=== PATIENT | female | born 1960 | race Caucasian/White ===

== ENCOUNTER 2017-06-06 09:09 | Day surgery (SDC) | payer BC ==
[~2017-06-06 09:09] MED LIST: Lactated Ringers 1,000 ML IV SCH; Sodium Chloride 0.9% 10 ML Syringe FLUSH PRN; Sodium Chloride 0.9% 2.5 ML Syringe FLUSH PRN
--- NOTE | 2017-06-06 09:47 | PCM.PREANE ---
Preanesthetic Assessment - Anesthesia/Transfusion/Family Hx Anesthesia History: Prior Anesthesia Without Reaction Family History of Anesthesia Reaction: No Transfusion History: No Prior Transfusion(s) Intubation History: Unknown - Review of Systems General: No Symptoms Pulmonary: No Symptoms Cardiovascular: No Symptoms Gastrointestinal: Diarrhea Neurological: No Symptoms Other: Reports: None - Physical Assessment Height: 1.6 m Weight: 85.275 kg ASA Class: 2 Mental Status: Alert & Oriented x3 Airway Class: Mallampati = 2 Dentition: Reports: Normal Dentition Thyro-Mental Finger Breadths: 2 Mouth Opening Finger Breadths: 3 ROM/Head Extension: Full Lungs: Clear to Auscultation, Normal Respiratory Effort Cardiovascular: Regular Rate, Regular Rhythm - Allergies Allergies/Adverse Reactions: Allergies Allergy/AdvReac Type Severity Reaction Status Date / Time cefprozil [From Cefzil] Allergy Rash Verified 05/28/17 11:02 ciprofloxacin [From Cipro] Allergy Body Aches Verified 05/28/17 11:02 Penicillins Allergy Rash Verified 05/28/17 11:02 varenicline [From Chantix] Allergy Rash Verified 05/28/17 11:02 - Blood Blood Available: No - Anesthesia Plan Pre-Op Medication Ordered: None - Acknowledgements Anesthesia Type Planned: MAC Pt an Appropriate Candidate for the Planned Anesthesia: Yes Alternatives and Risks of Anesthesia Discussed w Pt/Guardian: Yes Pt/Guardian Understands and Agrees with Anesthesia Plan: Yes PreAnesthesia Questionnaire - Past Health History Medical/Surgical History: Denies Medical/Surgical History HEENT History: Reports: None Cardiovascular History: Reports: None Respiratory History: Reports: None Gastrointestinal History: Reports: Colon Polyp, Diverticulosis Genitourinary History: Reports: None 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: Musculoskeletal History: Reports: None Neurological History: Reports: None Psychiatric History: Reports: None Endocrine/Metabolic History: Reports: Obesity/BMI 30+, Other (See Below) (h/o thyroid nodule (s/p subtotal thyroidectomy)) Hematologic History: Reports: None Immunologic History: Reports: None Oncologic (Cancer) History: Reports: None Dermatologic History: Reports: None - Past Surgical History Head Surgeries/Procedures: Reports: None HEENT Surgical History: Reports: Naso-Sinus Surgery GI Surgical History: Reports: Colonoscopy (x2, last one 6 years ago) Female Surgical History: Reports: Section Endocrine Surgical History: Reports: Thyroidectomy Other Endocrine Surgeries/Procedures: subtotal thyroidectomy - SUBSTANCE USE Smoking Status *Q: Former Smoker (quit smoking 7 years ago) Second Hand Smoke Exposure: No Recreational Drug Use History: No - HOME MEDS Home Medications: Home Meds Aspirin 2 tab PO ASDIRECTED PRN 05/28/17 [History] Nicotine Polacrilex [Nicorette] 1 piece gum CHEW ASDIRECTED 05/28/17 [History] - CURRENT (IN HOUSE) MEDS Current Meds: Current Medications Lactated Ringer's (Ringers, Lactated) 1,000 mls @ 125 mls/hr IV ASDIRECTED LAURA Last Admin: 06/06/17 09:30 Dose: 125 mls/hr Sodium Chloride (Saline Flush) 10 ml FLUSH ASDIRECTED PRN PRN Reason: Keep Vein Open Sodium Chloride (Saline Flush) 2.5 ml FLUSH ASDIRECTED PRN PRN Reason: Keep Vein Open Sodium Chloride (Saline Flush) 10 ml FLUSH ASDIRECTED PRN PRN Reason: Keep Vein Open Sodium Chloride (Saline Flush) 2.5 ml FLUSH ASDIRECTED PRN PRN Reason: Keep Vein Open
[2017-06-06] MEDS ORDERED: Lidocaine 2% 5 ML SDV ONE (10:11)
[2017-06-06] MEDS ORDERED: Midazolam 1 MG/ML 2 ML SDV ONE (10:11)
[2017-06-06] MEDS ORDERED: Propofol 200 MG/20 ML SDV ONE (10:11)
[2017-06-06] MEDS ORDERED: fentaNYL 100 MCG/2 ML SDV ONE (10:11)
[2017-06-06] MEDS ORDERED: Glycopyrrolate 0.2 MG/ML SDV ONE (10:53)
--- NOTE | 2017-06-06 11:53 | PCM.OPNOTE ---
- General Post-Op/Procedure Note Date of Surgery/Procedure: 06/06/17 Operative Procedure(s): Colonoscopy Findings: 1 cecal polyp, sigmoid colon polyps x 3 Pre Op Diagnosis: History of colon polyps Post-Op Diagnosis: Cecal polyp, Multiple sigmoid colon polyps Anesthesia Technique: [facility] [place] Primary Surgeon: Clarisse Fry Condition: Good Free Text/Narrative:: Intake & Output 06/05/17 06/06/17 06/06/17 22:59 06:59 14:59 Intake Total 900 Balance 900
[2017-06-06 14:22] VITALS: BP 137/75
--- NOTE | 2017-06-06 15:58 | OR ---
SURGEON: MIMA WHITE MD DATE OF PROCEDURE: 06/06/2017 PREOPERATIVE DIAGNOSIS: History of colon polyps. POSTOPERATIVE DIAGNOSES: 1. Cecal polyp x1. 2. Sigmoid colon polyp x3. PROCEDURE PERFORMED: Colonoscopy. ANESTHESIA: MAC. INSTRUMENT USED: Olympus colonoscope. EXTENT OF EXAM: To the cecum. PREPARATION: Good. LIMITATIONS: None. INDICATION FOR EXAMINATION: The patient is a 56-year-old female, who is due for a repeat colonoscopy after having found colon polyps on previous colonoscopy. The patient and I discussed the procedure, expected perioperative course and the risks including bleeding, infection, or perforation. The patient verbalized understanding and wishes to proceed. PROCEDURE IN DETAIL: The patient was brought to the endoscopy suite and placed in a left lateral decubitus position. A time-out was completed verifying the patient's name, age, date of , allergies, and procedure to be performed. Monitored anesthesia care was induced and continuous oxygen was provided via nasal cannula throughout the procedure. After adequate sedation was achieved, a digital rectal exam was performed. This exam was within normal limits. A well lubricated colonoscope was inserted in the rectum and advanced under direct visualization to the level of cecum. Cecum was identified by both visual and anatomic landmarks. A photograph was taken of cecal cap as well as the scope retroflexed within the cecum. The scope was then straightened out and fully withdrawn while examining the color, texture, anatomy, and integrity of the mucosa from the cecum to the anal canal. The patient was found to have a cecal polyp that measured approximately 5 mm in size. This was removed in piecemeal fashion using a cold biopsy forceps. The patient was then found to have three separate sigmoid polyps approximately 2 to 3 mm in size in the distal sigmoid colon. These were removed using a cold biopsy forceps. The scope was then brought into the rectum and retroflexed to allow visualization of the anal canal opening. This appeared normal and a photograph was taken. The scope was then straightened out and fully withdrawn. The cecum to anus time was 15 minutes. The patient tolerated the procedure well and was taken to PACU in stable condition. ENDOSCOPIC DIAGNOSES: 1. Cecal polyp x1. 2. Sigmoid colon polyp x3. RECOMMENDATIONS: Follow up in clinic in 2 weeks. JOVANNA KIM /[id number]
== END 2017-06-06 11:55 | disposition home or self-care (01) ==
LOC: MW.SDS 09:09
PROVIDERS: ATTEND Surgery
DX: Z12.11 Encounter for screening for malignant neoplasm of colon (principal); D12.0 Benign neoplasm of cecum; K63.5 Polyp of colon; Z86.010 Personal history of colon polyps; Z88.0 Allergy status to penicillin; Z88.1 Allergy status to other antibiotic agents; Z88.8 Allergy status to other drugs, medicaments and biological substances; Z79.899 Other long term (current) drug therapy; Z90.89 Acquired absence of other organs; Z87.891 Personal history of nicotine dependence
CPT/HCPCS: 45380; J2250; J3010; J7120; 88305; J2704

== ENCOUNTER 2018-07-23 07:58 | Day surgery (SDC) | payer BC ==
[~2018-07-23 07:58] MED LIST changes: +Sodium Chloride 0.9% 10 ML SDV IV PRN
[2018-07-23] MEDS ORDERED: Propofol 200 MG/20 ML SDV ONE ×2 (08:37→10:07)
[2018-07-23] MEDS ORDERED: Midazolam 1 MG/ML 2 ML SDV ONE (08:37)
[2018-07-23] MEDS ORDERED: fentaNYL 100 MCG/2 ML SDV ONE (08:38)
[2018-07-23] MEDS ORDERED: Lidocaine 2% 5 ML SDV ONE (08:38)
--- NOTE | 2018-07-23 09:06 | PCM.PREANE ---
Preanesthetic Assessment - Anesthesia/Transfusion/Family Hx Anesthesia History: Prior Anesthesia Without Reaction Transfusion History: No Prior Transfusion(s) Intubation History: Unknown - Review of Systems General: No Symptoms Pulmonary: No Symptoms Cardiovascular: No Symptoms Gastrointestinal: No Symptoms Neurological: No Symptoms Other: Reports: None - Physical Assessment NPO Status Date: 07/23/18 NPO Status Time: 06:00 O2 Sat by Pulse Oximetry: 95 Respiratory Rate: 15 Vital Signs: Last Vital Signs Temp 36.6 C 07/23/18 08:15 Pulse 78 07/23/18 08:15 Resp 15 07/23/18 08:15 BP 153/74 H 07/23/18 08:15 Pulse Ox 95 07/23/18 08:15 Height: 1.6 m Weight: 86.636 kg ASA Class: 2 Mental Status: Alert & Oriented x3 Airway Class: Mallampati = 3 (short, thick neck) Dentition: Reports: Normal Dentition Thyro-Mental Finger Breadths: 3 Mouth Opening Finger Breadths: 3 ROM/Head Extension: Full Lungs: Clear to Auscultation, Normal Respiratory Effort Cardiovascular: Regular Rate, Regular Rhythm - Allergies Allergies/Adverse Reactions: Allergies Allergy/AdvReac Type Severity Reaction Status Date / Time amoxicillin [From Augmentin] Allergy Rash Verified 07/17/18 14:00 cefprozil [From Cefzil] Allergy Rash Verified 07/17/18 13:56 ciprofloxacin [From Cipro] Allergy Body Aches Verified 07/17/18 13:56 clavulanic acid Allergy Rash Verified 07/17/18 14:00 [From Augmentin] Penicillins Allergy Rash Verified 07/17/18 13:56 varenicline [From Chantix] Allergy Rash Verified 07/17/18 13:56 - Acknowledgements Anesthesia Type Planned: MAC Pt an Appropriate Candidate for the Planned Anesthesia: Yes Alternatives and Risks of Anesthesia Discussed w Pt/Guardian: Yes Pt/Guardian Understands and Agrees with Anesthesia Plan: Yes PreAnesthesia Questionnaire - Past Health History Medical/Surgical History: Denies Medical/Surgical History HEENT History: Reports: Allergic Rhinitis Cardiovascular History: Reports: None Respiratory History: Reports: None Gastrointestinal History: Reports: Colon Polyp, Diverticulosis Genitourinary History: Reports: None 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: Musculoskeletal History: Reports: None Neurological History: Reports: None Psychiatric History: Reports: None Endocrine/Metabolic History: Reports: Obesity/BMI 30+, Other (See Below) Hematologic History: Reports: None Immunologic History: Reports: None Oncologic (Cancer) History: Reports: None Dermatologic History: Reports: None - Past Surgical History Head Surgeries/Procedures: Reports: None HEENT Surgical History: Reports: None, Naso-Sinus Surgery Cardiovascular Surgical History: Reports: None Respiratory Surgical History: Reports: None GI Surgical History: Reports: Colonoscopy Female Surgical History: Reports: Section Endocrine Surgical History: Reports: Thyroidectomy Other Endocrine Surgeries/Procedures: subtotal thyroidectomy Neurological Surgical History: Reports: None Musculoskeletal Surgical History: Reports: None Oncologic Surgical History: Reports: None Dermatological Surgical History: Reports: None - SUBSTANCE USE Smoking Status *Q: Former Smoker (quit 8 years ago) Tobacco Use Within Last Twelve Months: No Days Per Week of Alcohol Use: 0 (occasional etoh) Recreational Drug Use History: No - HOME MEDS Home Medications: Home Meds Aspirin 2 tab PO ASDIRECTED PRN 05/28/17 [History] Nicotine Polacrilex [Nicorette] 1 piece gum CHEW ASDIRECTED 05/28/17 [History] Cholecalciferol (Vitamin D3) [Vitamin D3] 200 units PO DAILY 07/17/18 [History] [place]-3/DHA/Epa/Fish Oil [Fish Oil 1,000 mg Softgel] 2 tab PO DAILY 07/17/18 [ History] - CURRENT (IN HOUSE) MEDS Current Meds: Current Medications Lactated Ringer's (Ringers, Lactated) 1,000 mls @ 125 mls/hr IV ASDIRECTED LAURA Last Admin: 07/23/18 08:37 Dose: 125 mls/hr Lactated Ringer's (Ringers, Lactated) 1,000 mls @ 125 mls/hr IV ASDIRECTED LAURA Sodium Chloride (Saline Flush) 10 ml FLUSH ASDIRECTED PRN PRN Reason: Keep Vein Open Sodium Chloride (Saline Flush) 2.5 ml FLUSH ASDIRECTED PRN PRN Reason: Keep Vein Open Sodium Chloride (Saline Flush) 10 ml FLUSH ASDIRECTED PRN PRN Reason: Keep Vein Open Sodium Chloride (Saline Flush) 2.5 ml FLUSH ASDIRECTED PRN PRN Reason: Keep Vein Open Sodium Chloride (Normal Saline) 10 ml IV ASDIRECTED PRN PRN Reason: IV Use Sodium Chloride (Saline Flush) 10 ml FLUSH ASDIRECTED PRN PRN Reason: Keep Vein Open Sodium Chloride (Saline Flush) 2.5 ml FLUSH ASDIRECTED PRN PRN Reason: Keep Vein Open Sodium Chloride (Normal Saline) 10 ml IV ASDIRECTED PRN PRN Reason: IV Use Discontinued Medications Fentanyl (Sublimaze) Confirm Administered Dose 100 mcg .ROUTE .STK-MED ONE Stop: 07/23/18 08:39 Lidocaine (Xylocaine-Mpf 2%) Confirm Administered Dose 5 ml .ROUTE .STK-MED ONE Stop: 07/23/18 08:39 Midazolam HCl (Versed 1 Mg/Ml) Confirm Administered Dose 2 mg .ROUTE .STK-MED ONE Stop: 07/23/18 08:38 Propofol (Diprivan 20 Ml) Confirm Administered Dose 200 mg .ROUTE .STK-MED ONE Stop: 07/23/18 08:38
[2018-07-23 10:24] VITALS: BP 125/83
--- NOTE | 2018-07-23 10:30 | PCM.POSTAN ---
POST ANESTHESIA ASSESSMENT - MENTAL STATUS Mental Status: Alert, Oriented - RESPIRATORY Respiratory Status: Respiratory Rate WNL, Airway Patent, O2 Saturation Stable - CARDIOVASCULAR CV Status: Pulse Rate WNL, Blood Pressure Stable - GASTROINTESTINAL GI Status: No Symptoms - POST OP HYDRATION Hydration Status: Adequate & Stable - OBSERVATIONS Free Text/Narrative:: The patient tolerated the procedure well. There were no apparent anesthetic complications at this time.
--- NOTE | 2018-07-23 11:08 | PCM48HPAN ---
Post Anesthesia Note - EVALUATION WITHIN 48HRS OF ANESTHETIC Vital Signs in Normal Range: Yes Patient Participated in Evaluation: Yes Respiratory Function Stable: Yes Airway Patent: Yes Cardiovascular Function Stable: Yes Hydration Status Stable: Yes Pain Control Satisfactory: Yes Nausea and Vomiting Control Satisfactory: Yes Mental Status Recovered: Yes Resp Rate: 22 - COMMENTS/OBSERVATIONS Free Text/Narrative:: The patient tolerated the procedure well. There were no apparent anesthetic complications at this time. Discharge home per criteria.
--- NOTE | 2018-07-23 13:38 | PCM.OPNOTE ---
- General Post-Op/Procedure Note Date of Surgery/Procedure: 07/23/18 Operative Procedure(s): Screening colonoscopy Findings: ascending colon polyp, transverse colon polyp, hepatic flexure polyp, diverticulosis Pre Op Diagnosis: History of colon polyp Post-Op Diagnosis: Ascending colon polyp, transverse colon polyp, hepatic flexure polyp diverticulosis Anesthesia Technique: [facility] [place] Primary Surgeon: Clarisse Fry Condition: Good Free Text/Narrative:: Intake & Output 07/22/18 07/23/18 07/23/18 22:59 06:59 14:59 Intake Total 700 Balance 700
--- NOTE | 2018-07-23 18:42 | OR ---
SURGEON: CLARISSE FRY MD DATE OF PROCEDURE: 07/23/2018 PREOPERATIVE DIAGNOSIS: History of colon polyps. POSTOPERATIVE DIAGNOSES: 1. Diverticulosis. 2. Hepatic flexure polyp. 3. Ascending colon polyp. 4. Transverse colon polyp. PROCEDURE PERFORMED: Screening colonoscopy. ENDOSCOPIST: Clarisse Fry MD. ANESTHESIA: MAC. INSTRUMENT USED: Olympus colonoscope. EXTENT OF EXAM: To the cecum. PREPARATION: Good. LIMITATIONS: None. INDICATION FOR EXAMINATION: The patient is a 58-year-old female who presents for a repeat colonoscopy. 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 I again explained the procedure, expected perioperative course, and risks including bleeding, infection, damage to surrounding structures including perforation. The patient verbalized understanding and wishes to proceed. PROCEDURE IN DETAIL: The patient was brought into the endoscopy suite and placed in the left lateral decubitus position. A time-out was completed verifying the patient's name, age, date of , allergies, and procedure to be performed. Monitored anesthesia care was induced and continuous oxygen was provided via nasal cannula throughout the procedure. After adequate sedation was achieved, a digital rectal exam was performed. This exam was within normal limits. A well lubricated colonoscope was inserted into the rectum and advanced under direct visualization to the level of the cecum. The cecum was identified by both visual and anatomic landmarks. A photograph was taken of cecal cap as well as with the scope retroflexed within the cecum. The scope was then straightened out and fully withdrawn while examining the color, texture, anatomy, and integrity of the mucosa from the cecum to the anal canal. There was no evidence of a cecal polyp. The patient did have a small ascending colon polyp which was removed in piecemeal fashion using a cold biopsy forceps. There was a similar appearing polyp at the hepatic flexure and in the transverse colon. These were removed in a similar fashion. The patient did have some mild diverticulosis within the sigmoid colon. The scope was then brought into the rectum and retroflexed to allow visualization of the anal canal opening. This appeared normal and a photograph was taken. The scope was then straightened out and fully withdrawn. The cecum to anus time was 14 minutes. The patient tolerated the procedure well and was taken to PACU in stable condition. ENDOSCOPIC DIAGNOSES: 1. Diverticulosis. 2. Hepatic flexure polyp. 3. Ascending colon polyp. 4. Transverse colon polyp. RECOMMENDATIONS: Follow up in clinic in 2 weeks. JOVANNA KIM /[id number]
== END 2018-07-23 10:50 | disposition home or self-care (01) ==
LOC: MW.SDS 07:58
PROVIDERS: ATTEND Surgery
DX: D12.2 Benign neoplasm of ascending colon (principal); D12.3 Benign neoplasm of transverse colon; K57.30 Diverticulosis of large intestine without perforation or abscess without bleeding; R12 Heartburn; E78.00 Pure hypercholesterolemia, unspecified; E78.1 Pure hyperglyceridemia; Z88.0 Allergy status to penicillin; Z88.1 Allergy status to other antibiotic agents; Z88.8 Allergy status to other drugs, medicaments and biological substances; Z87.891 Personal history of nicotine dependence; Z79.82 Long term (current) use of aspirin; Z79.899 Other long term (current) drug therapy
CPT/HCPCS: 45380; J2001; J2250; J2704; J3010; J7120; 88305

== ENCOUNTER 2018-11-14 11:53 | Observation (INO) | payer BC ==
[2018-11-14] MEDS ORDERED: Sodium Chloride 0.9% 10 ML SDV IV PRN (12:16)
[2018-11-14] MEDS ORDERED: Sodium Chloride 0.9% 10 ML Syringe FLUSH PRN (12:16)
[2018-11-14] MEDS ORDERED: Sodium Chloride 0.9% 2.5 ML Syringe FLUSH PRN (12:16)
--- NOTE | 2018-11-14 12:16 | EDM.PDOC ---
ED HPI GENERAL MEDICAL PROBLEM - General Chief Complaint: Cardiovascular Problem Stated Complaint: DIZZINESS, ELEVATED HRT RATE THIS AM, LFT SD NUMB Time Seen by Provider: 11/14/18 12:07 Source of Information: Reports: Patient History Limitations: Reports: No Limitations - History of Present Illness INITIAL COMMENTS - FREE TEXT/NARRATIVE: History of present illness: []Patient states that he is ago she had a sensation of left-sided numbness tingling and pain on her whole body from head to toe that resolved spontaneously and today while she was working out symptoms recurred. She says there less now however she still feels slight numbness and tingling in her fingers and leg. She denies any chest pain, shortness of breath, fevers, chills. 2 Mondays she has had GI upset is temporary. He denies any urinary complaints. Review of systems: As per history of present illness and below otherwise all systems reviewed and negative. Past medical history: As per history of present illness and as reviewed below otherwise noncontributory. Surgical history: As per history of present illness and as reviewed below otherwise noncontributory. Social history: No reported history of drug or alcohol abuse. Family history: As per history of present illness and as reviewed below otherwise noncontributory. Physical exam: General: Well developed, well nourished in NAD HEENT: Atraumatic, normocephalic, pupils reactive, negative for conjunctival pallor or scleral icterus, mucous membranes moist, throat clear, neck supple, nontender, trachea midline. Lungs: Clear to auscultation, breath sounds equal bilaterally, chest nontender. Heart: S1S2, regular, negative for clicks, rubs, or JVD. Abdomen: NABS, Soft, nondistended, nontender. Negative for masses or hepatosplenomegaly. Negative for costovertebral tenderness. Pelvis: Stable nontender. Genitourinary: Deferred. Rectal: Deferred. Extremities: Atraumatic, negative for cords or calf pain. Neurovascular unremarkable. Neuro: Awake, alert, oriented. Cranial nerves II through XII unremarkable. Cerebellum unremarkable. Motor and sensory unremarkable throughout. Exam nonfocal. Skin:warm and dry NIH 0 Diagnostics: CT shows no stroke however there is deep white matter low density areas suspicious for demyelinating type disease. Focal like MS lesions and radiology recommended further workup with MRI. CBC, chemistry, troponin, TSH Therapeutics: IV hydration and observation ED Course: Stable, consulted hospitalist to admit patient for further workup including MRI of head Impression: Left-sided numbness and tingling Prescriptions: None Plan: Admit Definitive disposition and diagnosis as appropriate pending reevaluation and review of above. - Related Data Allergies Allergy/AdvReac Type Severity Reaction Status Date / Time amoxicillin [From Augmentin] Allergy Rash Verified 11/14/18 12:06 cefprozil [From Cefzil] Allergy Rash Verified 11/14/18 12:06 ciprofloxacin [From Cipro] Allergy Body Aches Verified 11/14/18 12:06 clavulanic acid Allergy Rash Verified 11/14/18 12:06 [From Augmentin] Penicillins Allergy Rash Verified 11/14/18 12:06 varenicline [From Chantix] Allergy Rash Verified 11/14/18 12:06 Home Meds: Home Meds Aspirin 2 tab PO ASDIRECTED PRN 05/28/17 [History] Nicotine Polacrilex [Nicorette] 1 piece gum CHEW ASDIRECTED 05/28/17 [History] Cholecalciferol (Vitamin D3) [Vitamin D3] 200 units PO DAILY 07/17/18 [History] [place]-3/DHA/Epa/Fish Oil [Fish Oil 1,000 mg Softgel] 2 tab PO DAILY 07/17/18 [ History] Past Medical History - Past Health History Medical/Surgical History: Denies Medical/Surgical History HEENT History: Reports: Allergic Rhinitis Cardiovascular History: Reports: High Cholesterol, Hypertension Respiratory History: Reports: None Gastrointestinal History: Reports: Colon Polyp, Diverticulosis Genitourinary History: Reports: None 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 ASSOCIATE History: Reports: Musculoskeletal History: Reports: None Neurological History: Reports: None Psychiatric History: Reports: None Endocrine/Metabolic History: Reports: Obesity/BMI 30+, Other (See Below) Hematologic History: Reports: None Immunologic History: Reports: None Oncologic (Cancer) History: Reports: None Dermatologic History: Reports: None - Infectious Disease History Infectious Disease History: Reports: Chicken Pox - Past Surgical History Head Surgeries/Procedures: Reports: None HEENT Surgical History: Reports: None, Naso-Sinus Surgery Cardiovascular Surgical History: Reports: None Respiratory Surgical History: Reports: None GI Surgical History: Reports: Colonoscopy Female Surgical History: Reports: Section Endocrine Surgical History: Reports: Thyroidectomy Other Endocrine Surgeries/Procedures: subtotal thyroidectomy Neurological Surgical History: Reports: None Musculoskeletal Surgical History: Reports: None Oncologic Surgical History: Reports: None Dermatological Surgical History: Reports: None Social & Family History - Family History Family Medical History: Noncontributory Cardiac: Reports: MT - Tobacco Use Smoking Status *Q: Former Smoker Years of Tobacco use: 33 Used Tobacco, but Quit: Yes Month/Year Tobacco Last Used: 9year - Caffeine Use Caffeine Use: Reports: Coffee - Recreational Drug Use Recreational Drug Use: No ED ROS GENERAL - Review of Systems Review Of Systems: See Below ED EXAM, GENERAL - Physical Exam Exam: See Below Course - Vital Signs Last Recorded V/S: Last Vital Signs Temp 97.8 F 11/14/18 12:06 Pulse 77 11/14/18 13:30 Resp 18 11/14/18 12:06 BP 176/99 H 11/14/18 13:30 Pulse Ox 96 11/14/18 13:30 - Orders/Labs/Meds Orders: Active Orders 24 hr Category Date Time Status Patient Status [ADT] Stat ADT 11/14/18 13:23 Active Assess Neurological Status [RC] ASDIRECTED Care 11/14/18 12:16 Active Bedrest [RC] ASDIRECTED Care 11/14/18 12:16 Active Cardiac Monitoring [RC] . DIRECTED Care 11/14/18 12:16 Active EKG 12 Lead [EKG Documentation Completion] [RC] STAT Care 11/14/18 12:12 Active EKG Documentation Completion [RC] STAT Care 11/14/18 12:16 Active Height and Weight [RC] UPON Care 11/14/18 12:16 Active Initiate Acute Stroke Protocol [RC] STAT Care 11/14/18 12:16 Active NIH Stroke Scale [RC] ASDIRECTED Care 11/14/18 12:16 Active Nursing Bedside Swallow Screen [RC] ASDIRECTED Care 11/14/18 12:16 Active Oxygen Therapy [RC] ASDIRECTED Care 11/14/18 12:16 Active Stroke Education, General [RC] Click to Edit Care 11/14/18 12:16 Active Vital Signs [RC] Q15M Care 11/14/18 12:16 Active Sodium Chloride 0.9% [Normal Saline] Med 11/14/18 12:16 Active 10 ml IV ASDIRECTED PRN Sodium Chloride 0.9% [Saline Flush] Med 11/14/18 12:16 Active 10 ml FLUSH ASDIRECTED PRN Sodium Chloride 0.9% [Saline Flush] Med 11/14/18 12:16 Active 2.5 ml FLUSH ASDIRECTED PRN Peripheral IV Insertion Adult [OM.PC] Stat Ot 11/14/18 12:16 Ordered Peripheral IV Insertion Adult [OM.PC] Stat [facility] 11/14/18 12:16 Ordered Medication Orders Sodium Chloride (Saline Flush) 10 ml FLUSH ASDIRECTED PRN PRN Reason: Keep Vein Open Sodium Chloride (Saline Flush) 2.5 ml FLUSH ASDIRECTED PRN PRN Reason: Keep Vein Open Sodium Chloride (Normal Saline) 10 ml IV ASDIRECTED PRN PRN Reason: IV Use Labs: Laboratory Tests 11/14/18 11/14/18 11/14/18 Range/Units 12:20 12:20 12:20 WBC 10.01 (4.0-11.0) K/uL RBC 5.14 (4.30-5.90) M/uL Hgb 15.7 (12.0-16.0) g/dL Hct 46.2 H (36.0-46.0) % MCV 89.9 (80.0-98.0) fL MCH 30.5 (27.0-32.0) pg MCHC 34.0 (31.0-37.0) g/dL RDW Std Deviation 44.0 (28.0-62.0) fl RDW Coeff of Oscar 13 (11.0-15.0) % Plt Count 282 (150-400) K/uL MPV 10.00 (7.40-12.00) fL Neut % (Auto) 68.1 (48.0-80.0) % Lymph % (Auto) 21.8 (16.0-40.0) % [place] % (Auto) 7.3 (0.0-15.0) % Eos % (Auto) 2.3 (0.0-7.0) % Baso % (Auto) 0.5 (0.0-1.5) % Neut # (Auto) 6.8 H (1.4-5.7) K/uL Lymph # (Auto) 2.2 (0.6-2.4) K/uL [place] # (Auto) 0.7 (0.0-0.8) K/uL Eos # (Auto) 0.2 (0.0-0.7) K/uL Baso # (Auto) 0.1 (0.0-0.1) K/uL Nucleated RBC % 0.0 /100WBC Nucleated RBCs # 0 K/uL INR 0.96 APTT 26.5 (18.6-31.3) SEC Sodium 140 (136-145) mmol/L Potassium 4.3 (3.5-5.1) mmol/L Chloride 105 (98-107) mmol/L Carbon Dioxide 21.5 (21.0-32.0) mmol/L BUN 16 (7.0-18.0) mg/dL Creatinine 0.8 (0.6-1.0) mg/dL Est Cr Clr Drug Dosing 62.63 mL/min Estimated GFR (MDRD) > 60.0 ml/min Glucose 109 H (74-106) mg/dL Calcium 9.7 (8.5-10.1) mg/dL Total Bilirubin 0.5 (0.2-1.0) mg/dL AST 18 (15-37) IU/L ALT 35 (14-63) IU/L Alkaline Phosphatase 107 (46-116) U/L Troponin I < 0.050 (0.000-0.056) ng/mL Total Protein 7.6 (6.4-8.2) g/dL Albumin 4.4 (3.4-5.0) g/dL Globulin 3.2 (2.6-4.0) g/dL Albumin/Globulin Ratio 1.4 (0.9-1.6) TSH 3rd Generation 1.47 (0.36-3.74) uIU/mL Meds: Medications Generic Name Dose Route Start Last Admin Trade Name Freq PRN Reason Stop Dose Admin Sodium Chloride 10 ml 11/14/18 12:16 Saline Flush FLUSH ASDIRECTED PRN Keep Vein Open Sodium Chloride 2.5 ml 11/14/18 12:16 Saline Flush FLUSH ASDIRECTED PRN Keep Vein Open Sodium Chloride 10 ml 11/14/18 12:16 Normal Saline IV ASDIRECTED PRN IV Use Departure - Departure Time of Disposition: 14:15 Disposition: Refer to Observation Condition: Good Clinical Impression: Left sided numbness - My Orders Last 24 Hours: My Active Orders 11/14/18 12:12 EKG 12 Lead [EKG Documentation Completion] [RC] STAT 11/14/18 12:16 Assess Neurological Status [RC] ASDIRECTED Bedrest [RC] ASDIRECTED Cardiac Monitoring [RC] . DIRECTED EKG Documentation Completion [RC] STAT Height and Weight [RC] UPON Initiate Acute Stroke Protocol [RC] STAT NIH Stroke Scale [RC] ASDIRECTED Nursing Bedside Swallow Screen [RC] ASDIRECTED Oxygen Therapy [RC] ASDIRECTED Stroke Education, General [RC] Click to Edit Vital Signs [RC] Q15M Sodium Chloride 0.9% [Normal Saline] 10 ml IV ASDIRECTED PRN Sodium Chloride 0.9% [Saline Flush] 10 ml FLUSH ASDIRECTED PRN Sodium Chloride 0.9% [Saline Flush] 2.5 ml FLUSH ASDIRECTED PRN Peripheral IV Insertion Adult [OM.PC] Stat Peripheral IV Insertion Adult [OM.PC] Stat 11/14/18 13:23 Patient Status [ADT] Stat - Assessment/Plan Last 24 Hours: My Active Orders 11/14/18 12:12 EKG 12 Lead [EKG Documentation Completion] [RC] STAT 11/14/18 12:16 Assess Neurological Status [RC] ASDIRECTED Bedrest [RC] ASDIRECTED Cardiac Monitoring [RC] . DIRECTED EKG Documentation Completion [RC] STAT Height and Weight [RC] UPON Initiate Acute Stroke Protocol [RC] STAT NIH Stroke Scale [RC] ASDIRECTED Nursing Bedside Swallow Screen [RC] ASDIRECTED Oxygen Therapy [RC] ASDIRECTED Stroke Education, General [RC] Click to Edit Vital Signs [RC] Q15M Sodium Chloride 0.9% [Normal Saline] 10 ml IV ASDIRECTED PRN Sodium Chloride 0.9% [Saline Flush] 10 ml FLUSH ASDIRECTED PRN Sodium Chloride 0.9% [Saline Flush] 2.5 ml FLUSH ASDIRECTED PRN Peripheral IV Insertion Adult [OM.PC] Stat Peripheral IV Insertion Adult [OM.PC] Stat 11/14/18 13:23 Patient Status [ADT] Stat
[2018-11-14 13:14] LABS: CHLORIDE,CL 105 mmol/L (98-107); SODIUM,NA 140 mmol/L (136-145)
--- NOTE | 2018-11-14 13:14 | CT ---
INDICATION: 58-year-old female presents with left-sided weakness. COMPARISON: none TECHNIQUE: A CT volumetric acquisition was performed of the brain without IV contrast. FINDINGS: The CT images demonstrate abnormal confluent areas of decreased density within the deep white matter of the frontal and occipital lobes. There is no evidence of associated mass effect or hemorrhage. There is normal fine-white differentiation. The fine matter appears normal. There is no evidence of a subdural or epidural hematoma. There is no evidence of subarachnoid hemorrhage or intraparenchymal bleeding. The CT images reveal a normal appearance of the cerebral ventricles and basal cisterns. The mastoid air cells and middle ear cavities are clear. The calvarium appears intact. There is trace amount of fluid and inflammatory mucoperiosteal thickening within the maxillary and ethmoid air cells. IMPRESSION: Abnormal low-density changes within the deep white matter of the frontal and occipital lobes. Would recommend characterization with MRI to determine if there is a demyelinating process such as Lyme`s disease in this 58-year-old female. Please note that all CT scans at this facility use dose modulation, iterative reconstruction, and/or weight-based dosing when appropriate to reduce radiation dose to as low as reasonably achievable. Dictated by Bashir Trujillo MD @ Nov 14 2018 1:00PM Signed by Dr. Bashir Trujillo @ Nov 14 2018 1:13PM
[2018-11-14] MEDS ORDERED: Ondansetron 4 MG/2 ML SDV IVPUSH PRN (14:31)
[2018-11-14] MEDS ORDERED: Ondansetron 4 MG Tab.DIS PO PRN (14:31)
[2018-11-14] MEDS ORDERED: Morphine 2 MG/ML Syringe IVPUSH PRN (14:31)
[2018-11-14] MEDS ORDERED: Acetaminophen 325 MG Tab PO PRN (14:31)
--- NOTE | 2018-11-14 15:03 | PCM.HP.2 ---
<Bret Hamilton M - Last Filed: 11/14/18 16:33> H&P History of Present Illness - General Date of Service: 11/14/18 Admit Problem/Dx: Admission Diagnosis/Problem Admission Diagnosis/Problem Numbness - History of Present Illness Initial Comments - Free Text/Narative: 58-year-old female presented to [facility] ER with complaints of left face, left arm and left leg soreness and numbness. Onset was approximately 2 hours prior to arrival to ED and resolved within 1 hour. Patient reports that approximately 3 days ago she had stomach cramping, bloating, fatigue, chills, body aches and feeling like her heart was racing and this then progressed to soreness and numbness on the left side of her body. This eventually resolved on its own and she was in her normal state of health yesterday. However, this morning after working out in the gym, she reported feeling left sided numbness, tingling and soreness once again and then spontaneously resolved within an hour. She came to the ER for further evaluation. At bedside, patient reports slight dizziness, cough and chronic diarrhea. She denies any fevers, chills, vomiting, chest pain , shortness of breath, numbness, tingling, muscle aches, skin rashes or lesions. In the ER, CT head showed no evidence of stroke but does show abnormal low- density changes within the deep white matter of frontal and occipital lobes that could represent a demyelinating process such as Lyme's disease. MRI was recommended. - Related Data Allergies/Adverse Reactions: Allergies Allergy/AdvReac Type Severity Reaction Status Date / Time amoxicillin [From Augmentin] Allergy Rash Verified 11/14/18 14:43 cefprozil [From Cefzil] Allergy Rash Verified 11/14/18 14:43 ciprofloxacin [From Cipro] Allergy Body Aches Verified 11/14/18 14:43 clavulanic acid Allergy Rash Verified 11/14/18 14:43 [From Augmentin] Penicillins Allergy Rash Verified 11/14/18 14:43 varenicline [From Chantix] Allergy Rash Verified 11/14/18 14:43 Home Medications: Home Meds Aspirin 2 tab PO ASDIRECTED PRN 05/28/17 [History] Nicotine Polacrilex [Nicorette] 1 piece gum CHEW Q1H 05/28/17 [History] Cholecalciferol (Vitamin D3) [Vitamin D3] 200 units PO DAILY 07/17/18 [History] [place]-3/DHA/Epa/Fish Oil [Fish Oil 1,000 mg Softgel] 2 tab PO DAILY 07/17/18 [ History] Past Medical History - Past Health History Medical/Surgical History: Denies Medical/Surgical History HEENT History: Reports: Allergic Rhinitis Cardiovascular History: Reports: High Cholesterol, Hypertension Respiratory History: Reports: None Gastrointestinal History: Reports: Colon Polyp, Diverticulosis Genitourinary History: Reports: None 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: Musculoskeletal History: Reports: None Neurological History: Reports: None Psychiatric History: Reports: None Endocrine/Metabolic History: Reports: Obesity/BMI 30+, Other (See Below) Hematologic History: Reports: None Immunologic History: Reports: None Oncologic (Cancer) History: Reports: None Dermatologic History: Reports: None - Infectious Disease History Infectious Disease History: Reports: Chicken Pox, Shingles - Past Surgical History Head Surgeries/Procedures: Reports: None HEENT Surgical History: Reports: None, Naso-Sinus Surgery Cardiovascular Surgical History: Reports: None Respiratory Surgical History: Reports: None GI Surgical History: Reports: Colonoscopy Female Surgical History: Reports: Section Endocrine Surgical History: Reports: Thyroidectomy Other Endocrine Surgeries/Procedures: subtotal thyroidectomy Neurological Surgical History: Reports: None Musculoskeletal Surgical History: Reports: None Oncologic Surgical History: Reports: None Dermatological Surgical History: Reports: None Social & Family History - Family History Family Medical History: Noncontributory Cardiac: Reports: [place] - Tobacco Use Smoking Status *Q: Former Smoker Years of Tobacco use: 33 Used Tobacco, but Quit: Yes Month/Year Tobacco Last Used: 9year - Caffeine Use Caffeine Use: Reports: Coffee - Recreational Drug Use Recreational Drug Use: No H&P Review of Systems - Review of Systems: Review Of Systems: ROS reveals no pertinent complaints other than HPI. Exam - Exam Exam: See Below - Vital Signs Vital Signs: Last Vital Signs Temp 98.3 F 11/14/18 14:52 Pulse 85 11/14/18 14:52 Resp 18 11/14/18 14:52 BP 176/93 H 11/14/18 14:52 Pulse Ox 96 11/14/18 14:52 Weight: 86.591 kg - Exam General: Alert, Oriented, Cooperative (No acute distress) HEENT: Conjunctiva Clear, EOMI, Hearing Intact, Mucosa Moist & Ivy, Posterior Pharynx Clear, Pupils Equal, Pupils Reactive, TMs Clear Neck: Supple, Trachea Midline Lungs: Clear to Auscultation, Normal Respiratory Effort Cardiovascular: Regular Rate, Regular Rhythm GI/Abdominal Exam: Normal Bowel Sounds, Soft, Non-Tender, No Distention Extremities: Normal Inspection, No Pedal Edema Peripheral Pulses: 2+: Popliteal (L), Popliteal (R) Skin: Warm, Dry, Intact Neurological: Cranial Nerves Intact, Strength Equal Bilateral, Normal Speech, Normal Tone, Sensation Intact Neuro Extensive - Mental Status: Alert, Oriented x3, Normal Mood/Affect Psychiatric: Alert, Normal Affect, Normal Mood - Patient Data Lab Results Last 24 hrs: Laboratory Results - last 24 hr 11/14/18 11/14/18 11/14/18 Range/Units 12:20 12:20 12:20 WBC 10.01 (4.0-11.0) K/uL RBC 5.14 (4.30-5.90) M/uL Hgb 15.7 (12.0-16.0) g/dL Hct 46.2 H (36.0-46.0) % MCV 89.9 (80.0-98.0) fL MCH 30.5 (27.0-32.0) pg MCHC 34.0 (31.0-37.0) g/dL RDW Std Deviation 44.0 (28.0-62.0) fl RDW Coeff of Oscar 13 (11.0-15.0) % Plt Count 282 (150-400) K/uL MPV 10.00 (7.40-12.00) fL Neut % (Auto) 68.1 (48.0-80.0) % Lymph % (Auto) 21.8 (16.0-40.0) % [place] % (Auto) 7.3 (0.0-15.0) % Eos % (Auto) 2.3 (0.0-7.0) % Baso % (Auto) 0.5 (0.0-1.5) % Neut # (Auto) 6.8 H (1.4-5.7) K/uL Lymph # (Auto) 2.2 (0.6-2.4) K/uL [place] # (Auto) 0.7 (0.0-0.8) K/uL Eos # (Auto) 0.2 (0.0-0.7) K/uL Baso # (Auto) 0.1 (0.0-0.1) K/uL Nucleated RBC % 0.0 /100WBC Nucleated RBCs # 0 K/uL INR 0.96 APTT 26.5 (18.6-31.3) SEC Sodium 140 (136-145) mmol/L Potassium 4.3 (3.5-5.1) mmol/L Chloride 105 (98-107) mmol/L Carbon Dioxide 21.5 (21.0-32.0) mmol/L BUN 16 (7.0-18.0) mg/dL Creatinine 0.8 (0.6-1.0) mg/dL Est Cr Clr Drug Dosing 62.63 mL/min Estimated GFR (MDRD) > 60.0 ml/min Glucose 109 H (74-106) mg/dL Calcium 9.7 (8.5-10.1) mg/dL Total Bilirubin 0.5 (0.2-1.0) mg/dL AST 18 (15-37) IU/L ALT 35 (14-63) IU/L Alkaline Phosphatase 107 (46-116) U/L Troponin I < 0.050 (0.000-0.056) ng/mL Total Protein 7.6 (6.4-8.2) g/dL Albumin 4.4 (3.4-5.0) g/dL Globulin 3.2 (2.6-4.0) g/dL Albumin/Globulin Ratio 1.4 (0.9-1.6) TSH 3rd Generation 1.47 (0.36-3.74) uIU/mL Result Diagrams: 11/14/18 12:20 11/14/18 12:20 Problem List Initiated/Reviewed/Updated: Yes Orders Last 24hrs: Active Orders 24 hr Category Date Time Status Patient Status [ADT] Stat ADT 11/14/18 13:23 Active Antiembolic Devices [RC] PER UNIT ROUTINE Care 11/14/18 14:33 Ordered Assess Neurological Status [RC] ASDIRECTED Care 11/14/18 12:16 Active Cardiac Monitoring [RC] . DIRECTED Care 11/14/18 12:16 Active Height and Weight [RC] UPON Care 11/14/18 12:16 Active Oxygen Therapy [RC] PRN Care 11/14/18 14:31 Ordered Up ad Luli [RC] ASDIRECTED Care 11/14/18 14:31 Ordered VTE/DVT Education [RC] PER UNIT ROUTINE Care 11/14/18 14:31 Ordered Vital Signs [RC] Q4H Care 11/14/18 14:31 Ordered Regular Diet [DIET] Diet 11/14/18 Lunch Ordered Acetaminophen [Tylenol] Med 11/14/18 14:31 Ordered 650 mg PO Q4H PRN Morphine Med 11/14/18 14:31 Ordered 2 mg IVPUSH Q2H PRN Ondansetron [Zofran ODT] Med 11/14/18 14:31 Ordered 4 mg PO Q4H PRN Ondansetron [Zofran] Med 11/14/18 14:31 Ordered 4 mg IVPUSH Q4H PRN Sodium Chloride 0.9% [Normal Saline] Med 11/14/18 12:16 Active 10 ml IV ASDIRECTED PRN Sodium Chloride 0.9% [Saline Flush] Med 11/14/18 12:16 Active 10 ml FLUSH ASDIRECTED PRN Sodium Chloride 0.9% [Saline Flush] Med 11/14/18 12:16 Active 2.5 ml FLUSH ASDIRECTED PRN Peripheral IV Insertion Adult [OM.PC] Stat Oth 11/14/18 12:16 Ordered Peripheral IV Insertion Adult [OM.PC] Stat Oth 11/14/18 12:16 Ordered Sequential Compression Device [OM.PC] Per Unit Routine Oth 11/14/18 14:33 Ordered Resuscitation Status Routine Resus Stat 11/14/18 14:31 Ordered Medication Orders Acetaminophen (Tylenol) 650 mg PO Q4H PRN PRN Reason: Pain (Mild 1-3)/fever Morphine Sulfate (Morphine) 2 mg IVPUSH Q2H PRN PRN Reason: Pain (severe 7-10) Stop: 11/15/18 14:33 Ondansetron HCl (Zofran Odt) 4 mg PO Q4H PRN PRN Reason: nausea, able to take PO Ondansetron HCl (Zofran) 4 mg IVPUSH Q4H PRN PRN Reason: Nausea Sodium Chloride (Saline Flush) 10 ml FLUSH ASDIRECTED PRN PRN Reason: Keep Vein Open Sodium Chloride (Saline Flush) 2.5 ml FLUSH ASDIRECTED PRN PRN Reason: Keep Vein Open Sodium Chloride (Normal Saline) 10 ml IV ASDIRECTED PRN PRN Reason: IV Use Assessment/Plan Comment:: Assessment: 1. Left-sided numbness and tingling, resolved. 2. Abnormal low-density changes within deep white matter of frontal and occipital lobes on CT head, query demyelinating process. 3. Past medical history of hyperlipidemia, hypertension and thyroid nodule s/p partial thyroidectomy. Plan: 1. For left-sided numbness and tingling and CT head findings, consulted neurologist Dr. Zepeda who recommended MRI with and without contrast. We appreciate any further recommendations. Patient will have neuro-checks q4h and will be on telemetry. Will order AM lipid panel and HgbA1c. As per Dr. Zepeda , will do further TIA/stroke work-up depending on MRI results. <Corwin Martínez - Last Filed: 11/14/18 17:18> H&P History of Present Illness - General Admit Problem/Dx: Admission Diagnosis/Problem Admission Diagnosis/Problem Numbness I have examined the patient independently of medical terminologist, Dr. Alfonso MD. I have discussed the case with him. I have reviewed and agree with the examination and plan as outlined by him. Please see orders. Exam - Vital Signs Vital Signs: Last Vital Signs Temp 36.7 C 11/14/18 15:54 Pulse 93 11/14/18 15:54 Resp 16 11/14/18 15:54 BP 154/71 H 11/14/18 15:54 Pulse Ox 93 L 11/14/18 15:54 - Patient Data Lab Results Last 24 hrs: Laboratory Results - last 24 hr 11/14/18 11/14/18 11/14/18 Range/Units 12:20 12:20 12:20 WBC 10.01 (4.0-11.0) K/uL RBC 5.14 (4.30-5.90) M/uL Hgb 15.7 (12.0-16.0) g/dL Hct 46.2 H (36.0-46.0) % MCV 89.9 (80.0-98.0) fL MCH 30.5 (27.0-32.0) pg MCHC 34.0 (31.0-37.0) g/dL RDW Std Deviation 44.0 (28.0-62.0) fl RDW Coeff of Oscar 13 (11.0-15.0) % Plt Count 282 (150-400) K/uL MPV 10.00 (7.40-12.00) fL Neut % (Auto) 68.1 (48.0-80.0) % Lymph % (Auto) 21.8 (16.0-40.0) % [place] % (Auto) 7.3 (0.0-15.0) % Eos % (Auto) 2.3 (0.0-7.0) % Baso % (Auto) 0.5 (0.0-1.5) % Neut # (Auto) 6.8 H (1.4-5.7) K/uL Lymph # (Auto) 2.2 (0.6-2.4) K/uL [place] # (Auto) 0.7 (0.0-0.8) K/uL Eos # (Auto) 0.2 (0.0-0.7) K/uL Baso # (Auto) 0.1 (0.0-0.1) K/uL Nucleated RBC % 0.0 /100WBC Nucleated RBCs # 0 K/uL INR 0.96 APTT 26.5 (18.6-31.3) SEC Sodium 140 (136-145) mmol/L Potassium 4.3 (3.5-5.1) mmol/L Chloride 105 (98-107) mmol/L Carbon Dioxide 21.5 (21.0-32.0) mmol/L BUN 16 (7.0-18.0) mg/dL Creatinine 0.8 (0.6-1.0) mg/dL Est Cr Clr Drug Dosing 62.63 mL/min Estimated GFR (MDRD) > 60.0 ml/min Glucose 109 H (74-106) mg/dL Calcium 9.7 (8.5-10.1) mg/dL Total Bilirubin 0.5 (0.2-1.0) mg/dL AST 18 (15-37) IU/L ALT 35 (14-63) IU/L Alkaline Phosphatase 107 (46-116) U/L Troponin I < 0.050 (0.000-0.056) ng/mL Total Protein 7.6 (6.4-8.2) g/dL Albumin 4.4 (3.4-5.0) g/dL Globulin 3.2 (2.6-4.0) g/dL Albumin/Globulin Ratio 1.4 (0.9-1.6) TSH 3rd Generation 1.47 (0.36-3.74) uIU/mL Result Diagrams: 11/14/18 12:20 11/14/18 12:20 Orders Last 24hrs: Active Orders 24 hr Category Date Time Status Patient Status [ADT] Stat ADT 11/14/18 13:23 Active Antiembolic Devices [RC] PER UNIT ROUTINE Care 11/14/18 14:33 Active Assess Neurological Status [RC] Q4H Care 11/14/18 12:16 Active Cardiac Monitoring [RC] . DIRECTED Care 11/14/18 12:16 Inactive Cardiac Monitoring [RC] . DIRECTED Care 11/14/18 15:09 Inactive Notify Provider Consults [RC] ASDIRECTED Care 11/14/18 15:32 Active Oxygen Therapy [RC] PRN Care 11/14/18 14:31 Active Telemetry Monitoring [Cardiac Monitoring] [RC] Q8H Care 11/14/18 15:58 Active Up ad Luli [RC] ASDIRECTED Care 11/14/18 14:31 Active VTE/DVT Education [RC] PER UNIT ROUTINE Care 11/14/18 14:31 Active Vital Signs [RC] Q4H Care 11/14/18 14:31 Active Consult to Physician [CONS] Routine Cons 11/14/18 15:32 Active Regular Diet [DIET] Diet 11/14/18 Lunch Active BASIC METABOLIC PANEL,BMP [CHEM] AM Lab 11/15/18 05:11 Ordered CBC WITH AUTO DIFF [HEME] AM Lab 11/15/18 05:11 Ordered GLYCOSYLATED HEMOGLOBIN,HGBA1C [CHEM] AM Lab 11/15/18 05:11 Ordered LIPID PANEL [CHEM] AM Lab 11/15/18 05:11 Ordered ALPRAZolam [Xanax] Med 11/14/18 15:30 Active 0.5 mg PO ONETIME PRN Acetaminophen [Tylenol] Med 11/14/18 14:31 Active 650 mg PO Q4H PRN Morphine Med 11/14/18 14:31 Active 2 mg IVPUSH Q2H PRN Ondansetron [Zofran ODT] Med 11/14/18 14:31 Active 4 mg PO Q4H PRN Ondansetron [Zofran] Med 11/14/18 14:31 Active 4 mg IVPUSH Q4H PRN Sodium Chloride 0.9% [Normal Saline] Med 11/14/18 12:16 Active 10 ml IV ASDIRECTED PRN Sodium Chloride 0.9% [Saline Flush] Med 11/14/18 12:16 Active 10 ml FLUSH ASDIRECTED PRN Sodium Chloride 0.9% [Saline Flush] Med 11/14/18 12:16 Active 2.5 ml FLUSH ASDIRECTED PRN Peripheral IV Insertion Adult [OM.PC] Stat Oth 11/14/18 12:16 Ordered Peripheral IV Insertion Adult [OM.PC] Stat Oth 11/14/18 12:16 Ordered Sequential Compression Device [OM.PC] Per Unit Routine Oth 11/14/18 14:33 Ordered Resuscitation Status Routine Resus Stat 11/14/18 14:31 Ordered Medication Orders Acetaminophen (Tylenol) 650 mg PO Q4H PRN PRN Reason: Pain (Mild 1-3)/fever Last Admin: 11/14/18 15:36 Dose: 650 mg Alprazolam (Xanax) 0.5 mg PO ONETIME PRN PRN Reason: Other Last Admin: 11/14/18 15:40 Dose: 0.5 mg Morphine Sulfate (Morphine) 2 mg IVPUSH Q2H PRN PRN Reason: Pain (severe 7-10) Stop: 11/15/18 14:33 Ondansetron HCl (Zofran Odt) 4 mg PO Q4H PRN PRN Reason: nausea, able to take PO Ondansetron HCl (Zofran) 4 mg IVPUSH Q4H PRN PRN Reason: Nausea Sodium Chloride (Saline Flush) 10 ml FLUSH ASDIRECTED PRN PRN Reason: Keep Vein Open Sodium Chloride (Saline Flush) 2.5 ml FLUSH ASDIRECTED PRN PRN Reason: Keep Vein Open Sodium Chloride (Normal Saline) 10 ml IV ASDIRECTED PRN PRN Reason: IV Use
[2018-11-14] MEDS ORDERED: ALPRAZolam 0.5 MG Tab PO PRN (15:30)
[2018-11-14] MEDS ORDERED: Gadobenate Dimeglumine 529 MG/ML 20 ML SDV IVPUSH STA (15:52)
--- NOTE | 2018-11-14 17:13 | MR ---
INDICATION: 58-year-old female. Evaluate for cerebral white matter disease. TECHNIQUE: Brain imaging consisting of volumetric T1 and axial FLAIR, T2, T1 and diffusion weighted images. Gadolinium-enhanced volumetric images are also acquired. COMPARISON: Brain performed earlier today. FINDINGS: The ventricles normal in size and shape. No areas of diffusion restriction to suggest acute ischemic infarction no evidence of intracranial hemorrhage. There are confluent areas of FLAIR and T2 signal hyperintensity within cerebral white matter. These changes predominate in the subcortical and deep white matter locations with relative sparing of the periventricular zones. The appearance would be most consistent with chronic small vessel ischemic disease as opposed to a demyelinating process. However the findings are relatively nonspecific. No focal lesion in the brainstem or cerebellum. Inflammatory mucosal thickening ethmoid maxillary and sphenoid sinuses without air-fluid levels. No enhancing intra-axial or extra-axial lesions. IMPRESSION: 1. No evidence of acute ischemic infarction, intracranial hemorrhage or mass effect. 2. Confluent areas of FLAIR/T2 hyperintensity predominate in the subcortical and deep supratentorial white matter locations. 3. Findings are nonspecific but likely due to chronic small vessel ischemic disease. Dictated by Corwin Moncada MD @ Nov 14 2018 5:05PM Signed by Dr. Corwin Moncada @ Nov 14 2018 5:12PM
[2018-11-15 06:43] LABS: HEMOGLOBIN A1C 4.7 % (4.5-6.2)
[2018-11-15 06:46] LABS: CHLORIDE,CL 105 mmol/L (98-107); SODIUM,NA 141 mmol/L (136-145)
[2018-11-15] MEDS ORDERED: Aspirin 81 MG Tab.Chew PO ONE (08:00)
--- NOTE | 2018-11-15 08:19 | PCM.CONS ---
H&P History of Present Illness - General Date of Service: 11/15/18 Admit Problem/Dx: Admission Diagnosis/Problem Admission Diagnosis/Problem Numbness History Limitations: Reports: No Limitations - History of Present Illness Initial Comments - Free Text/Narative: 58 year old woman admitted with left arm /leg paresthesias. For the last 3 Mondays including this Sunday she has felt ill. She describes abdominal cramps, muscle aches, fatigue, chills. Symptoms have lasted between a day to day and a half. On this November 11, she had these similar symptoms in addition to a posterior right-sided sharp headache. She also noted left ear pain and soreness in the left upper and lower limb. She was still feeling ill on Sunday, but by Sunday she felt fine. She felt good morning on . Then while she was at the gym, her heart rate would not come down. It was up 120s to 140s and she felt lightheaded. She went home and felt nauseated and a vague dizziness. She had left ear pain (which she's had frequently which she relates to sinuses). Then, her entire left leg and hand felt tingly and numb. She presented to the ED. The tingling has resolved except she notes some in her hand this morning, which is similar to carpal tunnel syndrome she has had in the past. No rash, vision changes, diplopia, vertigo, imbalance, weakness. She currently has no headaches. Both her parents had MD before 60, and her brother has had a stroke. She is former smoker, currently nicotine gum. She has not tolerated Lipitor in the past. She had MRI in the past when she was having some vision changes - Related Data Allergies/Adverse Reactions: Allergies Allergy/AdvReac Type Severity Reaction Status Date / Time amoxicillin [From Augmentin] Allergy Rash Verified 11/14/18 14:43 cefprozil [From Cefzil] Allergy Rash Verified 11/14/18 14:43 ciprofloxacin [From Cipro] Allergy Body Aches Verified 11/14/18 14:43 clavulanic acid Allergy Rash Verified 11/14/18 14:43 [From Augmentin] Penicillins Allergy Rash Verified 11/14/18 14:43 varenicline [From Chantix] Allergy Rash Verified 11/14/18 14:43 Home Medications: Home Meds Aspirin 2 tab PO ASDIRECTED PRN 05/28/17 [History] Nicotine Polacrilex [Nicorette] 1 piece gum CHEW Q1H 05/28/17 [History] Cholecalciferol (Vitamin D3) [Vitamin D3] 200 units PO DAILY 07/17/18 [History] [place]-3/DHA/Epa/Fish Oil [Fish Oil 1,000 mg Softgel] 2 tab PO DAILY 07/17/18 [ History] Past Medical History - Past Health History Medical/Surgical History: Denies Medical/Surgical History HEENT History: Reports: Allergic Rhinitis Cardiovascular History: Reports: High Cholesterol, Hypertension Respiratory History: Reports: None Gastrointestinal History: Reports: Colon Polyp, Diverticulosis Genitourinary History: Reports: None 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: Musculoskeletal History: Reports: None Neurological History: Reports: None Psychiatric History: Reports: None Endocrine/Metabolic History: Reports: Obesity/BMI 30+, Other (See Below) Hematologic History: Reports: None Immunologic History: Reports: None Oncologic (Cancer) History: Reports: None Dermatologic History: Reports: None - Infectious Disease History Infectious Disease History: Reports: Chicken Pox, Shingles - Past Surgical History Head Surgeries/Procedures: Reports: None HEENT Surgical History: Reports: None, Naso-Sinus Surgery Cardiovascular Surgical History: Reports: None Respiratory Surgical History: Reports: None GI Surgical History: Reports: Colonoscopy Female Surgical History: Reports: Section Endocrine Surgical History: Reports: Thyroidectomy Other Endocrine Surgeries/Procedures: subtotal thyroidectomy Neurological Surgical History: Reports: None Musculoskeletal Surgical History: Reports: None Oncologic Surgical History: Reports: None Dermatological Surgical History: Reports: None Social & Family History - Family History Family Medical History: Noncontributory Cardiac: Reports: MD - Tobacco Use Smoking Status *Q: Former Smoker Years of Tobacco use: 33 Used Tobacco, but Quit: Yes Month/Year Tobacco Last Used: 9year Second Hand Smoke Exposure: No - Caffeine Use Caffeine Use: Reports: Coffee - Recreational Drug Use Recreational Drug Use: No H&P Review of Systems - Review of Systems: Review Of Systems: ROS reveals no pertinent complaints other than HPI. Exam - Exam Exam: See Below - Vital Signs Vital Signs: Last Vital Signs Temp 36.2 C 11/15/18 04:00 Pulse 66 11/15/18 04:00 Resp 16 11/15/18 04:00 BP 108/70 11/15/18 04:00 Pulse Ox 95 11/15/18 04:00 Weight: 86.591 kg - Exam Physical Exam Comments:: Constitutional: No acute distress Psychiatric: Mood/Affect: normal/appropriate Neurological: Mental Status: General: Normal activity, good hygiene, appropriate appearance. Level of consciousness: Awake, alert. Orientation: Oriented to person, place, time and situation. Concentration/Attention Span: Normal. Comprehension/Praxis: Able to perform a three step command. Fund of Knowledge/memory: Adequate recent and remote recall. Language: Fluent and articulate without evidence of aphasia or dysarthria. Thought Content: Normal. Insight/Judgement: Normal. Cranial Nerves: Pupils equally round and reactive to light. Visual lawrence full to confrontation. Gaze conjugate, EOMI. Sensation intact and symmetric to light touch. Facial strength is full and symmetric. Palate elevates symmetrically. Normal shrug bilaterally. Tongue protrudes midline Motor: Normal tone in all groups.Power 5/5 throughout. Sensation: Sensation is intact to pinprick, vibratory sense Deep tendon reflexes: Normoactive throughout. Coordination: Finger to nose, heel to torres and rapid alternating movements are intact. Gait: Normal casual gait. Normal tandem Eyes: non icteric, Mouth: moist mucus membranes Cardiovascular: RRR Respiratory: clear lungs GI: non tender Musculoskeletal: non tender Skin: no visible rash - Patient Data Lab Results Last 24 hrs: Laboratory Results - last 24 hr 11/14/18 11/14/18 11/14/18 Range/Units 12:20 12:20 12:20 WBC 10.01 (4.0-11.0) K/uL RBC 5.14 (4.30-5.90) M/uL Hgb 15.7 (12.0-16.0) g/dL Hct 46.2 H (36.0-46.0) % MCV 89.9 (80.0-98.0) fL MCH 30.5 (27.0-32.0) pg MCHC 34.0 (31.0-37.0) g/dL RDW Std Deviation 44.0 (28.0-62.0) fl RDW Coeff of Oscar 13 (11.0-15.0) % Plt Count 282 (150-400) K/uL MPV 10.00 (7.40-12.00) fL Neut % (Auto) 68.1 (48.0-80.0) % Lymph % (Auto) 21.8 (16.0-40.0) % Walker % (Auto) 7.3 (0.0-15.0) % Eos % (Auto) 2.3 (0.0-7.0) % Baso % (Auto) 0.5 (0.0-1.5) % Neut # (Auto) 6.8 H (1.4-5.7) K/uL Lymph # (Auto) 2.2 (0.6-2.4) K/uL Walker # (Auto) 0.7 (0.0-0.8) K/uL Eos # (Auto) 0.2 (0.0-0.7) K/uL Baso # (Auto) 0.1 (0.0-0.1) K/uL Nucleated RBC % 0.0 /100WBC Nucleated RBCs # 0 K/uL ESR (0-29) mm/hr INR 0.96 APTT 26.5 (18.6-31.3) SEC Sodium 140 (136-145) mmol/L Potassium 4.3 (3.5-5.1) mmol/L Chloride 105 (98-107) mmol/L Carbon Dioxide 21.5 (21.0-32.0) mmol/L BUN 16 (7.0-18.0) mg/dL Creatinine 0.8 (0.6-1.0) mg/dL Est Cr Clr Drug Dosing 62.63 mL/min Estimated GFR (MDRD) > 60.0 ml/min Glucose 109 H (74-106) mg/dL Hemoglobin A1c (4.5-6.2) % Calcium 9.7 (8.5-10.1) mg/dL Total Bilirubin 0.5 (0.2-1.0) mg/dL AST 18 (15-37) IU/L ALT 35 (14-63) IU/L Alkaline Phosphatase 107 (46-116) U/L Troponin I < 0.050 (0.000-0.056) ng/mL C-Reactive Protein (0.00-0.90) mg/dL Total Protein 7.6 (6.4-8.2) g/dL Albumin 4.4 (3.4-5.0) g/dL Globulin 3.2 (2.6-4.0) g/dL Albumin/Globulin Ratio 1.4 (0.9-1.6) Triglycerides (0-200) mg/dL Cholesterol (50-200) mg/dL LDL Cholesterol, Calc (60-180) mg/dL VLDL Cholesterol (5-55) mg/dL HDL Cholesterol (40-60) mg/dL Cholesterol/HDL Ratio (3.3-6.0) Vitamin B12 (193-986) pg/mL Folate (8.60-58.90) ng/mL TSH 3rd Generation 1.47 (0.36-3.74) uIU/mL 11/14/18 11/14/18 11/14/18 Range/Units 12:20 12:20 12:20 WBC (4.0-11.0) K/uL RBC (4.30-5.90) M/uL Hgb (12.0-16.0) g/dL Hct (36.0-46.0) % MCV (80.0-98.0) fL MCH (27.0-32.0) pg MCHC (31.0-37.0) g/dL RDW Std Deviation (28.0-62.0) fl RDW Coeff of Oscar (11.0-15.0) % Plt Count (150-400) K/uL MPV (7.40-12.00) fL Neut % (Auto) (48.0-80.0) % Lymph % (Auto) (16.0-40.0) % Walker % (Auto) (0.0-15.0) % Eos % (Auto) (0.0-7.0) % Baso % (Auto) (0.0-1.5) % Neut # (Auto) (1.4-5.7) K/uL Lymph # (Auto) (0.6-2.4) K/uL Walker # (Auto) (0.0-0.8) K/uL Eos # (Auto) (0.0-0.7) K/uL Baso # (Auto) (0.0-0.1) K/uL Nucleated RBC % /100WBC Nucleated RBCs # K/uL ESR 2 (0-29) mm/hr INR APTT (18.6-31.3) SEC Sodium (136-145) mmol/L Potassium (3.5-5.1) mmol/L Chloride (98-107) mmol/L Carbon Dioxide (21.0-32.0) mmol/L BUN (7.0-18.0) mg/dL Creatinine (0.6-1.0) mg/dL Est Cr Clr Drug Dosing mL/min Estimated GFR (MDRD) ml/min Glucose (74-106) mg/dL Hemoglobin A1c (4.5-6.2) % Calcium (8.5-10.1) mg/dL Total Bilirubin (0.2-1.0) mg/dL AST (15-37) IU/L ALT (14-63) IU/L Alkaline Phosphatase (46-116) U/L Troponin I (0.000-0.056) ng/mL C-Reactive Protein <0.20 (0.00-0.90) mg/dL Total Protein (6.4-8.2) g/dL Albumin (3.4-5.0) g/dL Globulin (2.6-4.0) g/dL Albumin/Globulin Ratio (0.9-1.6) Triglycerides (0-200) mg/dL Cholesterol (50-200) mg/dL LDL Cholesterol, Calc (60-180) mg/dL VLDL Cholesterol (5-55) mg/dL HDL Cholesterol (40-60) mg/dL Cholesterol/HDL Ratio (3.3-6.0) Vitamin B12 517 (193-986) pg/mL Folate 16.60 (8.60-58.90) ng/mL TSH 3rd Generation (0.36-3.74) uIU/mL 11/15/18 11/15/18 11/15/18 Range/Units 06:05 06:05 06:05 WBC 7.06 (4.0-11.0) K/uL RBC 4.99 (4.30-5.90) M/uL Hgb 15.1 (12.0-16.0) g/dL Hct 45.2 (36.0-46.0) % MCV 90.6 (80.0-98.0) fL MCH 30.3 (27.0-32.0) pg MCHC 33.4 (31.0-37.0) g/dL RDW Std Deviation 44.9 (28.0-62.0) fl RDW Coeff of Oscar 14 (11.0-15.0) % Plt Count 293 (150-400) K/uL MPV 9.70 (7.40-12.00) fL Neut % (Auto) 55.4 (48.0-80.0) % Lymph % (Auto) 29.2 (16.0-40.0) % Walker % (Auto) 9.1 (0.0-15.0) % Eos % (Auto) 5.9 (0.0-7.0) % Baso % (Auto) 0.4 (0.0-1.5) % Neut # (Auto) 3.9 (1.4-5.7) K/uL Lymph # (Auto) 2.1 (0.6-2.4) K/uL Walker # (Auto) 0.6 (0.0-0.8) K/uL Eos # (Auto) 0.4 (0.0-0.7) K/uL Baso # (Auto) 0.0 (0.0-0.1) K/uL Nucleated RBC % 0.0 /100WBC Nucleated RBCs # 0 K/uL ESR (0-29) mm/hr INR APTT (18.6-31.3) SEC Sodium 141 (136-145) mmol/L Potassium 4.4 (3.5-5.1) mmol/L Chloride 105 (98-107) mmol/L Carbon Dioxide 27.3 (21.0-32.0) mmol/L BUN 15 (7.0-18.0) mg/dL Creatinine 0.9 (0.6-1.0) mg/dL Est Cr Clr Drug Dosing 55.68 mL/min Estimated GFR (MDRD) > 60.0 ml/min Glucose 98 (74-106) mg/dL Hemoglobin A1c 4.7 (4.5-6.2) % Calcium 9.1 (8.5-10.1) mg/dL Total Bilirubin (0.2-1.0) mg/dL AST (15-37) IU/L ALT (14-63) IU/L Alkaline Phosphatase (46-116) U/L Troponin I (0.000-0.056) ng/mL C-Reactive Protein (0.00-0.90) mg/dL Total Protein (6.4-8.2) g/dL Albumin (3.4-5.0) g/dL Globulin (2.6-4.0) g/dL Albumin/Globulin Ratio (0.9-1.6) Triglycerides 208 H (0-200) mg/dL Cholesterol 263 H (50-200) mg/dL LDL Cholesterol, Calc 163 (60-180) mg/dL VLDL Cholesterol 41 (5-55) mg/dL HDL Cholesterol 58 (40-60) mg/dL Cholesterol/HDL Ratio 4.5 (3.3-6.0) Vitamin B12 (193-986) pg/mL Folate (8.60-58.90) ng/mL TSH 3rd Generation (0.36-3.74) uIU/mL Result Diagrams: 11/15/18 06:05 11/15/18 06:05 Imaging Impressions Last 24 hrs: MRI brain 11/14/2018 multifocal and confluent hyperintensity in the subcortical and deep white matter; significantly increased compared to 04/14/2010 (MRI brain 04/14/2010 showed T2 flair hyperintense foci in subcortical and deep white matter, multifocal) Labs 11/14- LDL 163, B12 517, TSH normal, trop negative, CRP normal, A1c 4.7, CBC normal, CMP normal Consult PN Assessment/Plan Procedures: Procedures ASSAY OF LIPASE (12/27/15) ASSAY OF TROPONIN QUANT (12/27/15) CHEST X-RAY 1 VIEW FRONTAL (12/27/15) COLONOSCOPY AND BIOPSY (07/23/18) COMPLETE CBC W/AUTO DIFF WBC (12/27/15) COMPREHEN METABOLIC PANEL (12/27/15) CT MAXILLOFACIAL W/O DYE (02/05/14) CT THORAX W/DYE (01/03/16) CYTOPATH EVAL FNA REPORT (01/06/16) ELECTROCARDIOGRAM TRACING (12/27/15) EMERGENCY DEPT VISIT (12/27/15) ROUTINE VENIPUNCTURE (12/27/15) TISSUE EXAM BY PATHOLOGIST (07/31/17) US EXAM OF HEAD AND NECK (10/29/17) (1) Left sided numbness SNOMED Code(s): 71360791 Code(s): R20.0 - ANESTHESIA OF SKIN Current Visit: Yes Assessment:: Possible TIA 58 year old woman with recent myalgias, abdominal pain, chills, headache who had transient left sided paresthesias suspicious for TIA. MRI showed white matter changes, which are most likely white matter changes, which were present to much lesser degree in 2011. I suspect the paresthesias may have TIA, small vessel. Rec: CTA head and neck TTE rosuvastatin ASA 81 discussed with patient. We suspect TIA, and MRI showed fairly prominent evidence of small vessel disease f/u with me in 1 week Problem List Initiated/Reviewed/Updated: Yes
[2018-11-15] MEDS ORDERED: Aspirin 81 MG Tab.Chew PO SCH (09:00)
--- NOTE | 2018-11-15 09:24 | PCM.DCSUM1 ---
<Bret Hamilton - Last Filed: 11/15/18 10:57> Discharge Summary - Hospital Course Free Text/Narrative:: 58-year-old female presented to [facility] with complaints of left sided numbness, tingling and soreness suspicious for TIA. She has a PMH of hypertension, hyperlipidemia and thyroid nodules s/p partial thyroidectomy. She experienced the symptoms shortly after exercising on the day of admission and her symptoms resolved within 1 hour. She also experienced the same symptoms approximately 3 days ago along with GI upset, nausea, fatigue, chills and palpitations. CT head showed no stroke but did show abnormal low-density changes within deep white matter of frontal and occipital lobes. Neurologist, Dr. Zepeda was consulted and recommended MRI which showed ernestine of hyperintensity predominately in the subcortical and dep supratentorial white matter location. As per Dr. Zepeda, findings are likely secondary to chronic small vessel disease. Dr. Zepeda further recommended ordering ECHO, CT angio head/neck and starting patient on aspirin 81 mg daily and rosuvastatin. CT angio and ECHO are pending. Patient remained stable throughout her hospitalization and remained asymptomatic. Patient instructed to follow-up with Dr. Zepeda in 1 week. Patient also instructed to follow-up with her PCP. - Discharge Data Discharge Date: 11/15/18 Discharge Disposition: Home, Self-Care 01 Condition: Good - Patient Summary/Data Consults: Consultations 11/14/18 15:32 Consult to Physician [CONS] Routine - Patient Instructions Diet: Heart Healthy Diet Activity: As Tolerated Notify Provider of: Fever, Increased Pain, Swelling and Redness, Drainage, Nausea and/or Vomiting - Discharge Plan *PRESCRIPTION DRUG MONITORING PROGRAM REVIEWED*: Not Applicable *COPY OF PRESCRIPTION DRUG MONITORING REPORT IN PATIENT SHI: Not Applicable Prescriptions/Med Rec: Aspirin 81 mg PO DAILY 30 Days #30 tab.chew Rosuvastatin Calcium [Crestor] 40 mg PO DAILY 30 Days #30 tablet Home Medications: Home Meds Nicotine Polacrilex [Nicorette] 1 piece gum CHEW Q1H 05/28/17 [History] Cholecalciferol (Vitamin D3) [Vitamin D3] 200 units PO DAILY 07/17/18 [History] [place]-3/DHA/Epa/Fish Oil [Fish Oil 1,000 mg Softgel] 2 tab PO DAILY 07/17/18 [ History] Aspirin 81 mg PO DAILY 30 Days #30 tab.chew 11/15/18 [Rx] Rosuvastatin Calcium [Crestor] 40 mg PO DAILY 30 Days #30 tablet 11/15/18 [Rx] Patient Handouts: Aspirin, ASA oral tablets, Rosuvastatin Tablets, Paresthesia , [id number] Referrals: Bubba Torres MD [Primary Care Provider] - 11/27/18 3:00 pm - Discharge Summary/Plan Comment DC Time >30 min.: No - Patient Data Vitals - Most Recent: Last Vital Signs Temp 97.1 F 11/15/18 04:00 Pulse 66 11/15/18 04:00 Resp 16 11/15/18 04:00 BP 108/70 11/15/18 04:00 Pulse Ox 95 11/15/18 04:00 Weight - Most Recent: 86.591 kg I&O - Last 24 hours: Intake & Output 11/14/18 11/15/18 11/15/18 22:59 06:59 14:59 Intake Total 200 700 Output Total 200 700 Balance 0 0 Lab Results - Last 24 hrs: Laboratory Results - last 24 hr 11/14/18 11/14/18 11/14/18 Range/Units 12:20 12:20 12:20 WBC 10.01 (4.0-11.0) K/uL RBC 5.14 (4.30-5.90) M/uL Hgb 15.7 (12.0-16.0) g/dL Hct 46.2 H (36.0-46.0) % MCV 89.9 (80.0-98.0) fL MCH 30.5 (27.0-32.0) pg MCHC 34.0 (31.0-37.0) g/dL RDW Std Deviation 44.0 (28.0-62.0) fl RDW Coeff of Oscar 13 (11.0-15.0) % Plt Count 282 (150-400) K/uL MPV 10.00 (7.40-12.00) fL Neut % (Auto) 68.1 (48.0-80.0) % Lymph % (Auto) 21.8 (16.0-40.0) % Taney % (Auto) 7.3 (0.0-15.0) % Eos % (Auto) 2.3 (0.0-7.0) % Baso % (Auto) 0.5 (0.0-1.5) % Neut # (Auto) 6.8 H (1.4-5.7) K/uL Lymph # (Auto) 2.2 (0.6-2.4) K/uL Taney # (Auto) 0.7 (0.0-0.8) K/uL Eos # (Auto) 0.2 (0.0-0.7) K/uL Baso # (Auto) 0.1 (0.0-0.1) K/uL Nucleated RBC % 0.0 /100WBC Nucleated RBCs # 0 K/uL ESR (0-29) mm/hr INR 0.96 APTT 26.5 (18.6-31.3) SEC Sodium 140 (136-145) mmol/L Potassium 4.3 (3.5-5.1) mmol/L Chloride 105 (98-107) mmol/L Carbon Dioxide 21.5 (21.0-32.0) mmol/L BUN 16 (7.0-18.0) mg/dL Creatinine 0.8 (0.6-1.0) mg/dL Est Cr Clr Drug Dosing 62.63 mL/min Estimated GFR (MDRD) > 60.0 ml/min Glucose 109 H (74-106) mg/dL Hemoglobin A1c (4.5-6.2) % Calcium 9.7 (8.5-10.1) mg/dL Total Bilirubin 0.5 (0.2-1.0) mg/dL AST 18 (15-37) IU/L ALT 35 (14-63) IU/L Alkaline Phosphatase 107 (46-116) U/L Troponin I < 0.050 (0.000-0.056) ng/mL C-Reactive Protein (0.00-0.90) mg/dL Total Protein 7.6 (6.4-8.2) g/dL Albumin 4.4 (3.4-5.0) g/dL Globulin 3.2 (2.6-4.0) g/dL Albumin/Globulin Ratio 1.4 (0.9-1.6) Triglycerides (0-200) mg/dL Cholesterol (50-200) mg/dL LDL Cholesterol, Calc (60-180) mg/dL VLDL Cholesterol (5-55) mg/dL HDL Cholesterol (40-60) mg/dL Cholesterol/HDL Ratio (3.3-6.0) Vitamin B12 (193-986) pg/mL Folate (8.60-58.90) ng/mL TSH 3rd Generation 1.47 (0.36-3.74) uIU/mL 11/14/18 11/14/18 11/14/18 Range/Units 12:20 12:20 12:20 WBC (4.0-11.0) K/uL RBC (4.30-5.90) M/uL Hgb (12.0-16.0) g/dL Hct (36.0-46.0) % MCV (80.0-98.0) fL MCH (27.0-32.0) pg MCHC (31.0-37.0) g/dL RDW Std Deviation (28.0-62.0) fl RDW Coeff of Oscar (11.0-15.0) % Plt Count (150-400) K/uL MPV (7.40-12.00) fL Neut % (Auto) (48.0-80.0) % Lymph % (Auto) (16.0-40.0) % Taney % (Auto) (0.0-15.0) % Eos % (Auto) (0.0-7.0) % Baso % (Auto) (0.0-1.5) % Neut # (Auto) (1.4-5.7) K/uL Lymph # (Auto) (0.6-2.4) K/uL Taney # (Auto) (0.0-0.8) K/uL Eos # (Auto) (0.0-0.7) K/uL Baso # (Auto) (0.0-0.1) K/uL Nucleated RBC % /100WBC Nucleated RBCs # K/uL ESR 2 (0-29) mm/hr INR APTT (18.6-31.3) SEC Sodium (136-145) mmol/L Potassium (3.5-5.1) mmol/L Chloride (98-107) mmol/L Carbon Dioxide (21.0-32.0) mmol/L BUN (7.0-18.0) mg/dL Creatinine (0.6-1.0) mg/dL Est Cr Clr Drug Dosing mL/min Estimated GFR (MDRD) ml/min Glucose (74-106) mg/dL Hemoglobin A1c (4.5-6.2) % Calcium (8.5-10.1) mg/dL Total Bilirubin (0.2-1.0) mg/dL AST (15-37) IU/L ALT (14-63) IU/L Alkaline Phosphatase (46-116) U/L Troponin I (0.000-0.056) ng/mL C-Reactive Protein <0.20 (0.00-0.90) mg/dL Total Protein (6.4-8.2) g/dL Albumin (3.4-5.0) g/dL Globulin (2.6-4.0) g/dL Albumin/Globulin Ratio (0.9-1.6) Triglycerides (0-200) mg/dL Cholesterol (50-200) mg/dL LDL Cholesterol, Calc (60-180) mg/dL VLDL Cholesterol (5-55) mg/dL HDL Cholesterol (40-60) mg/dL Cholesterol/HDL Ratio (3.3-6.0) Vitamin B12 517 (193-986) pg/mL Folate 16.60 (8.60-58.90) ng/mL TSH 3rd Generation (0.36-3.74) uIU/mL 11/15/18 11/15/18 11/15/18 Range/Units 06:05 06:05 06:05 WBC 7.06 (4.0-11.0) K/uL RBC 4.99 (4.30-5.90) M/uL Hgb 15.1 (12.0-16.0) g/dL Hct 45.2 (36.0-46.0) % MCV 90.6 (80.0-98.0) fL MCH 30.3 (27.0-32.0) pg MCHC 33.4 (31.0-37.0) g/dL RDW Std Deviation 44.9 (28.0-62.0) fl RDW Coeff of Oscar 14 (11.0-15.0) % Plt Count 293 (150-400) K/uL MPV 9.70 (7.40-12.00) fL Neut % (Auto) 55.4 (48.0-80.0) % Lymph % (Auto) 29.2 (16.0-40.0) % Taney % (Auto) 9.1 (0.0-15.0) % Eos % (Auto) 5.9 (0.0-7.0) % Baso % (Auto) 0.4 (0.0-1.5) % Neut # (Auto) 3.9 (1.4-5.7) K/uL Lymph # (Auto) 2.1 (0.6-2.4) K/uL Taney # (Auto) 0.6 (0.0-0.8) K/uL Eos # (Auto) 0.4 (0.0-0.7) K/uL Baso # (Auto) 0.0 (0.0-0.1) K/uL Nucleated RBC % 0.0 /100WBC Nucleated RBCs # 0 K/uL ESR (0-29) mm/hr INR APTT (18.6-31.3) SEC Sodium 141 (136-145) mmol/L Potassium 4.4 (3.5-5.1) mmol/L Chloride 105 (98-107) mmol/L Carbon Dioxide 27.3 (21.0-32.0) mmol/L BUN 15 (7.0-18.0) mg/dL Creatinine 0.9 (0.6-1.0) mg/dL Est Cr Clr Drug Dosing 55.68 mL/min Estimated GFR (MDRD) > 60.0 ml/min Glucose 98 (74-106) mg/dL Hemoglobin A1c 4.7 (4.5-6.2) % Calcium 9.1 (8.5-10.1) mg/dL Total Bilirubin (0.2-1.0) mg/dL AST (15-37) IU/L ALT (14-63) IU/L Alkaline Phosphatase (46-116) U/L Troponin I (0.000-0.056) ng/mL C-Reactive Protein (0.00-0.90) mg/dL Total Protein (6.4-8.2) g/dL Albumin (3.4-5.0) g/dL Globulin (2.6-4.0) g/dL Albumin/Globulin Ratio (0.9-1.6) Triglycerides 208 H (0-200) mg/dL Cholesterol 263 H (50-200) mg/dL LDL Cholesterol, Calc 163 (60-180) mg/dL VLDL Cholesterol 41 (5-55) mg/dL HDL Cholesterol 58 (40-60) mg/dL Cholesterol/HDL Ratio 4.5 (3.3-6.0) Vitamin B12 (193-986) pg/mL Folate (8.60-58.90) ng/mL TSH 3rd Generation (0.36-3.74) uIU/mL Med Orders - Current: Current Medications Acetaminophen (Tylenol) 650 mg PO Q4H PRN PRN Reason: Pain (Mild 1-3)/fever Last Admin: 11/14/18 15:36 Dose: 650 mg Alprazolam (Xanax) 0.5 mg PO ONETIME PRN PRN Reason: Other Last Admin: 11/14/18 15:40 Dose: 0.5 mg Aspirin (Aspirin) 81 mg PO DAILY LAURA Morphine Sulfate (Morphine) 2 mg IVPUSH Q2H PRN PRN Reason: Pain (severe 7-10) Stop: 11/15/18 14:33 Ondansetron HCl (Zofran Odt) 4 mg PO Q4H PRN PRN Reason: nausea, able to take PO Ondansetron HCl (Zofran) 4 mg IVPUSH Q4H PRN PRN Reason: Nausea Sodium Chloride (Saline Flush) 10 ml FLUSH ASDIRECTED PRN PRN Reason: Keep Vein Open Sodium Chloride (Saline Flush) 2.5 ml FLUSH ASDIRECTED PRN PRN Reason: Keep Vein Open Sodium Chloride (Normal Saline) 10 ml IV ASDIRECTED PRN PRN Reason: IV Use Discontinued Medications Aspirin (Aspirin) 81 mg PO DAILY ONE Stop: 11/15/18 08:01 Gadobenate Dimeglumine (Multihance) 20 ml IVPUSH ONETIME STA Stop: 11/14/18 15:53 Last Admin: 11/14/18 16:12 Dose: 17 ml - Exam General: Reports: Alert, Oriented, Cooperative, No Acute Distress Lungs: Reports: Clear to Auscultation, Normal Respiratory Effort Cardiovascular: Reports: Regular Rate, Regular Rhythm GI/Abdominal Exam: Normal Bowel Sounds, Soft, Non-Tender, No Distention Extremities: Normal Inspection, No Pedal Edema Neurological: Reports: Normal Speech, Normal Tone, Other (no focal neurological deficits, CN 2-12 grossly intact. 5/5 strength in upper and lower extremities bilaterally. normal sensation.) <Corwin Martínez - Last Filed: 11/15/18 13:34> Discharge Summary - Hospital Course HPI Initial Comments: I have examined the patient independently of medical typist, Dr. Alfonso MD. I have discussed the case with him. I have reviewed and agree with the examination and plan as outlined by him. Please see orders. The patient is to follow-up with neurology. - Patient Summary/Data Consults: Consultations 11/14/18 15:32 Consult to Physician [CONS] Routine - Patient Data Vitals - Most Recent: Last Vital Signs Temp 36.4 C 11/15/18 08:00 Pulse 80 11/15/18 08:00 Resp 16 11/15/18 08:00 BP 131/84 11/15/18 08:00 Pulse Ox 94 L 11/15/18 08:00 I&O - Last 24 hours: Intake & Output 11/14/18 11/15/18 11/15/18 22:59 06:59 14:59 Intake Total 200 700 240 Output Total 200 700 800 Balance 0 0 -560 Lab Results - Last 24 hrs: Laboratory Results - last 24 hr 11/14/18 11/14/18 11/14/18 Range/Units 12:20 12:20 12:20 WBC (4.0-11.0) K/uL RBC (4.30-5.90) M/uL Hgb (12.0-16.0) g/dL Hct (36.0-46.0) % MCV (80.0-98.0) fL MCH (27.0-32.0) pg MCHC (31.0-37.0) g/dL RDW Std Deviation (28.0-62.0) fl RDW Coeff of Oscar (11.0-15.0) % Plt Count (150-400) K/uL MPV (7.40-12.00) fL Neut % (Auto) (48.0-80.0) % Lymph % (Auto) (16.0-40.0) % Taney % (Auto) (0.0-15.0) % Eos % (Auto) (0.0-7.0) % Baso % (Auto) (0.0-1.5) % Neut # (Auto) (1.4-5.7) K/uL Lymph # (Auto) (0.6-2.4) K/uL Taney # (Auto) (0.0-0.8) K/uL Eos # (Auto) (0.0-0.7) K/uL Baso # (Auto) (0.0-0.1) K/uL Nucleated RBC % /100WBC Nucleated RBCs # K/uL ESR 2 (0-29) mm/hr Sodium (136-145) mmol/L Potassium (3.5-5.1) mmol/L Chloride (98-107) mmol/L Carbon Dioxide (21.0-32.0) mmol/L BUN (7.0-18.0) mg/dL Creatinine (0.6-1.0) mg/dL Est Cr Clr Drug Dosing mL/min Estimated GFR (MDRD) ml/min Glucose (74-106) mg/dL Hemoglobin A1c (4.5-6.2) % Calcium (8.5-10.1) mg/dL C-Reactive Protein <0.20 (0.00-0.90) mg/dL Triglycerides (0-200) mg/dL Cholesterol (50-200) mg/dL LDL Cholesterol, Calc (60-180) mg/dL VLDL Cholesterol (5-55) mg/dL HDL Cholesterol (40-60) mg/dL Cholesterol/HDL Ratio (3.3-6.0) Vitamin B12 517 (193-986) pg/mL Folate 16.60 (8.60-58.90) ng/mL 11/15/18 11/15/18 11/15/18 Range/Units 06:05 06:05 06:05 WBC 7.06 (4.0-11.0) K/uL RBC 4.99 (4.30-5.90) M/uL Hgb 15.1 (12.0-16.0) g/dL Hct 45.2 (36.0-46.0) % MCV 90.6 (80.0-98.0) fL MCH 30.3 (27.0-32.0) pg MCHC 33.4 (31.0-37.0) g/dL RDW Std Deviation 44.9 (28.0-62.0) fl RDW Coeff of Oscar 14 (11.0-15.0) % Plt Count 293 (150-400) K/uL MPV 9.70 (7.40-12.00) fL Neut % (Auto) 55.4 (48.0-80.0) % Lymph % (Auto) 29.2 (16.0-40.0) % [place]aney % (Auto) 9.1 (0.0-15.0) % Eos % (Auto) 5.9 (0.0-7.0) % Baso % (Auto) 0.4 (0.0-1.5) % Neut # (Auto) 3.9 (1.4-5.7) K/uL Lymph # (Auto) 2.1 (0.6-2.4) K/uL Taney # (Auto) 0.6 (0.0-0.8) K/uL Eos # (Auto) 0.4 (0.0-0.7) K/uL Baso # (Auto) 0.0 (0.0-0.1) K/uL Nucleated RBC % 0.0 /100WBC Nucleated RBCs # 0 K/uL ESR (0-29) mm/hr Sodium 141 (136-145) mmol/L Potassium 4.4 (3.5-5.1) mmol/L Chloride 105 (98-107) mmol/L Carbon Dioxide 27.3 (21.0-32.0) mmol/L BUN 15 (7.0-18.0) mg/dL Creatinine 0.9 (0.6-1.0) mg/dL Est Cr Clr Drug Dosing 55.68 mL/min Estimated GFR (MDRD) > 60.0 ml/min Glucose 98 (74-106) mg/dL Hemoglobin A1c 4.7 (4.5-6.2) % Calcium 9.1 (8.5-10.1) mg/dL C-Reactive Protein (0.00-0.90) mg/dL Triglycerides 208 H (0-200) mg/dL Cholesterol 263 H (50-200) mg/dL LDL Cholesterol, Calc 163 (60-180) mg/dL VLDL Cholesterol 41 (5-55) mg/dL HDL Cholesterol 58 (40-60) mg/dL Cholesterol/HDL Ratio 4.5 (3.3-6.0) Vitamin B12 (193-986) pg/mL Folate (8.60-58.90) ng/mL Med Orders - Current: Current Medications Discontinued Medications Acetaminophen (Tylenol) 650 mg PO Q4H PRN PRN Reason: Pain (Mild 1-3)/fever Last Admin: 11/14/18 15:36 Dose: 650 mg Alprazolam (Xanax) 0.5 mg PO ONETIME PRN PRN Reason: Other Last Admin: 11/14/18 15:40 Dose: 0.5 mg Aspirin (Aspirin) 81 mg PO DAILY ONE Stop: 11/15/18 08:01 Aspirin (Aspirin) 81 mg PO DAILY [facility] Last Admin: 11/15/18 10:44 Dose: 81 mg Gadobenate Dimeglumine (Multihance) 20 ml IVPUSH ONETIME STA Stop: 11/14/18 15:53 Last Admin: 11/14/18 16:12 Dose: 17 ml Iopamidol (Isovue Multipack-370 (76%)) 100 ml IVPUSH ONETIME STA Stop: 11/15/18 10:45 Last Admin: 11/15/18 10:45 Dose: 100 ml Morphine Sulfate (Morphine) 2 mg IVPUSH Q2H PRN PRN Reason: Pain (severe 7-10) Stop: 11/15/18 14:33 Ondansetron HCl (Zofran Odt) 4 mg PO Q4H PRN PRN Reason: nausea, able to take PO Ondansetron HCl (Zofran) 4 mg IVPUSH Q4H PRN PRN Reason: Nausea Rosuvastatin Calcium (Crestor) 20 mg PO DAILY [facility] Last Admin: 11/15/18 10:44 Dose: 20 mg Sodium Chloride (Saline Flush) 10 ml FLUSH ASDIRECTED PRN PRN Reason: Keep Vein Open Sodium Chloride (Saline Flush) 2.5 ml FLUSH ASDIRECTED PRN PRN Reason: Keep Vein Open Sodium Chloride (Normal Saline) 10 ml IV ASDIRECTED PRN PRN Reason: IV Use
[2018-11-15] MEDS ORDERED: Rosuvastatin 10 MG Tab PO SCH (09:45)
[2018-11-15] MEDS ORDERED: Iopamidol 755 MG/ML 500 ML Multipack Bottle IVPUSH STA (10:44)
--- NOTE | 2018-11-15 11:00 | CT ---
INDICATION: Transient ischemic attack. TECHNIQUE: After standard noncontrast head CT, high resolution axial CT images acquired through the head and neck following rapid intravenous administration of iodinated contrast. Multiplanar MIPS of cranial and cervical vasculature performed. COMPARISON: MRI and CT of 11/14/2018. FINDINGS: Noncontrast head CT: There is no intracranial hemorrhage or fluid collection. The fine-white matter differentiation is maintained. There are extensive nonspecific white matter hypodensities commonly seen with cerebral small vessel disease. The ventricles are of normal morphology. The basal cisterns are clear. CTA head: There is normal filling of the intracranial vasculature; i.e. there is no large vessel occlusion or significant intracranial stenosis. There is no cerebral aneurysm or evidence for vascular malformation. CTA neck: There is no significant carotid or vertebral artery stenosis or dissection. The soft tissues of the neck are within normal limits. The cervical spine is in normal alignment. The lung apices are clear. IMPRESSION: Extensive nonspecific white matter hypodensity commonly seen chronic cerebral small-vessel disease. Otherwise unremarkable CTA head and neck. Won Mcfadden MD Neurointerventional Radiologist [facility] Please note that all CT scans at this facility use dose modulation, iterative reconstruction, and/or weight-based dosing when appropriate to reduce radiation dose to as low as reasonably achievable. Dictated by Won Mcfadden MD @ Nov 15 2018 10:51AM Signed by Dr. Won Mcfadden @ Nov 15 2018 10:58AM
[2018-11-15 12:13] VITALS: BP 131/84
--- NOTE | 2018-11-19 13:16 | ECHO ---
The echocardiogram report can be seen in this patient's EMR (Electronic Medical Record) in the Reports F<11> section. The echocardiogram report has also been scanned into PACS and can be seen there as well. FABIANA
== END 2018-11-15 12:30 | disposition home or self-care (01) ==
LOC: MW.ED 11:53 → MW.MS 14:02
PROVIDERS: ADMIT Internal Medicine; ATTEND Internal Medicine
DX: R20.0 Anesthesia of skin (principal); R20.2 Paresthesia of skin; I10 Essential (primary) hypertension; E78.5 Hyperlipidemia, unspecified; E78.00 Pure hypercholesterolemia, unspecified; R90.89 Other abnormal findings on diagnostic imaging of central nervous system; E66.9 Obesity, unspecified; Z68.33 Body mass index [BMI] 33.0-33.9, adult; Z90.89 Acquired absence of other organs; Z79.899 Other long term (current) drug therapy; Z88.0 Allergy status to penicillin; Z88.1 Allergy status to other antibiotic agents; Z88.8 Allergy status to other drugs, medicaments and biological substances; Z87.891 Personal history of nicotine dependence
CPT/HCPCS: 36415; 70450; 70496; 70498; 70553; 80048; 80053; 80061; 82607; 82746; 83036; 84443; 84484; 85025; 85610; 85652; 85730; 86140; 93005; 93306; 99285; A9270; A9577; G0378; Q9967; 99284

== ENCOUNTER 2018-12-17 04:53 | Emergency (ER) | payer BC ==
[2018-12-17] MEDS ORDERED: Ketorolac 30 MG/ML SDV IVPUSH ONE (05:09)
[2018-12-17] MEDS ORDERED: methylPREDNISolone Sodium Succinate 125 MG/2 ML SDV IVPUSH ONE (05:09)
[2018-12-17] MEDS ORDERED: Sodium Chloride 0.9% 2.5 ML Syringe FLUSH PRN (05:09)
[2018-12-17] MEDS ORDERED: Ondansetron 4 MG/2 ML SDV IVPUSH ONE (05:09)
[2018-12-17] MEDS ORDERED: diphenhydrAMINE 50 MG/ML SDV IVPUSH ONE (05:09)
[2018-12-17] MEDS ORDERED: Sodium Chloride 0.9% 10 ML Syringe FLUSH PRN (05:09)
[2018-12-17] MEDS ORDERED: Sodium Chloride 0.9% 1,000 ML IV ONE (05:09)
--- NOTE | 2018-12-17 05:18 | EDM.PDOC ---
ED HPI GENERAL MEDICAL PROBLEM - General Stated Complaint: POSSIBLE STROKE Time Seen by Provider: 12/17/18 05:06 - History of Present Illness INITIAL COMMENTS - FREE TEXT/NARRATIVE: HISTORY AND PHYSICAL: History of present illness: The patient is a 58-year-old female who was admitted here November 14 as an observation after having some neurologic changes along with dizziness and was worked up with an MRI of the brain with and without contrast a CTA of the head and neck echocardiogram all of which revealed no acute abnormalities and she was also evaluated with an outpatient stress test which she did well on; she was seen in consultation by Dr. Zepeda ordered release test and felt that she had new onset hypertension hypercholesterolemia and likely had a TIA causing her paresthesias and dizziness. She says that she has since followed up with Dr. Zepeda in the clinic who released her from her care and said that she can continue to follow up with her provider at [facility] for her blood pressure and high cholesterol. She said that when she presented to the ED in October she had a headache on the left side of her head and this morning she says that she came in because of a bad headache on the right side of her head. The patient says that over the last 3 weeks since her TIA symptoms she has had dizziness which was improved once she changed her blood pressure medication that was newly started and then she noticed that she was having the headaches every couple of days and it would alternate from side to side. On Sunday, 3 days ago, she said that she didn't feel quite herself and felt wobbly intermittently dizzy and nauseated and had a dull headache. She said Sunday she felt fine and did her normal activities and yesterday she again felt very off. Her headache was not very intense so she did not come into the ED nor did she connect with her providers in the clinic. She said this morning she woke up and her headache seemed to be worse and she was concerned and scared so she came in for evaluation. She usually only takes Tylenol with her headaches and says that she has had them on and off over the last 3 weeks since her last admission. She has had her blood pressure medications adjusted and she says she is doing much better on them. She says that she is not having much nausea now but did have more nausea yesterday and she's had no vomiting or chest pain or shortness of breath. She's had no fever chills neck or back pain and has had no recent trauma. She has no weakness in any of her extremities and she has also had intermittent tingling in fingers and toes which again is not new but has been on and off over the last 3 weeks. She also says that she has had some intermittent vague abdominal pain and that is been ongoing for the last several months and is not new or different today. She did not have any syncope or near syncope in the last several days nor any falls. The patient monitors her blood pressure at home and showed me a journal of these numbers and she tends to run systolically around 120s as her norm. Review of systems: As per history of present illness and below otherwise all systems reviewed and negative. Past medical history: As per history of present illness and as reviewed below otherwise noncontributory. Surgical history: As per history of present illness and as reviewed below otherwise noncontributory. Social history: No reported history of drug or alcohol abuse. Family history: As per history of present illness and as reviewed below otherwise noncontributory. Physical exam: General: Well-developed well-nourished female who is somewhat tearful on my evaluation but is nontoxic and vital signs are noted by me. Her initial systolic blood pressure was 178 and on reevaluation it is now in the 150s. HEENT: Atraumatic, normocephalic, pupils reactive, negative for conjunctival pallor or scleral icterus, mucous membranes moist, throat clear, neck supple, nontender, trachea midline. Lungs: Clear to auscultation, breath sounds equal bilaterally, chest nontender. Heart: S1S2, regular rate and rhythm no overt murmurs Abdomen: Soft, nondistended, nontender. Negative for masses or hepatosplenomegaly. Negative for costovertebral tenderness. Pelvis: Stable nontender. Genitourinary: Deferred. Rectal: Deferred. Extremities: Atraumatic, negative for cords or calf pain. Neurovascular unremarkable. Neuro: Awake, alert, oriented. Cranial nerves II through XII unremarkable. Cerebellum unremarkable. Motor and sensory unremarkable throughout. Exam nonfocal.Normal tone throughout all extremities and motor is 5/5 of all extremities including grasp bilaterally and dorsi and plantar flexion including the great toe bilaterally. Diagnostics: EKG CT scan of the head CBC CMP TSH troponin UA with reflex Therapeutics: IV O2 monitor IV fluids Toradol Zofran Benadryl Solu-Medrol I asked the patient about Dr. Zepeda's impression of her on and off headaches that she is having and the patient says that initially when she saw Dr. Zepeda for follow-up the dizziness was her overwhelming symptom and this was eventually determined to be due to her blood pressure medications and once those were adjusted the dizziness stopped and she was more noticing these on and off headaches. She never discussed the headaches with Dr. Zepeda. She has discussed them with her provider at [facility] The patient is aware of all testing results including the slight elevation of TSH and says that she follows with endocrine doctor in [place] and will address it with them. I discussed with her the CT scan results and have offered to do a CTA of her head but she had one less than 3 weeks ago which did not demonstrate the abnormalities she feels comfortable with following up with Dr. Zepeda. I told her that I do not have etiology for her headaches but as they have been coming and going over the last 3 weeks and it was just more in intensity last evening I do not feel that she needs to be admitted to the hospital. She says her headache is improved here. Impression: episodic headaches Definitive disposition and diagnosis as appropriate pending reevaluation and review of above. Treatments DISTRIBUTOR ADVERTISING MATERIAL: Reports: Acetaminophen Headache Pain Score (Numeric/FACES): 2 - Related Data Allergies Allergy/AdvReac Type Severity Reaction Status Date / Time amoxicillin [From Augmentin] Allergy Rash Verified 12/17/18 05:09 cefprozil [From Cefzil] Allergy Rash Verified 12/17/18 05:09 ciprofloxacin [From Cipro] Allergy Body Aches Verified 12/17/18 05:09 clavulanic acid Allergy Rash Verified 12/17/18 05:09 [From Augmentin] hydrochlorothiazide Allergy Shortness Verified 12/17/18 05:10 of Breath Penicillins Allergy Rash Verified 12/17/18 05:09 varenicline [From Chantix] Allergy Rash Verified 12/17/18 05:09 Home Meds: Home Meds Nicotine Polacrilex [Nicorette] 1 piece gum CHEW Q1H 05/28/17 [History] Cholecalciferol (Vitamin D3) [Vitamin D3] 200 units PO DAILY 07/17/18 [History] Mesa-3/DHA/Epa/Fish Oil [Fish Oil 1,000 mg Softgel] 2 tab PO DAILY 07/17/18 [ History] Aspirin 81 mg PO DAILY 30 Days #30 tab.chew 11/15/18 [Rx] Rosuvastatin Calcium [Crestor] 40 mg PO DAILY 30 Days #30 tablet 11/15/18 [Rx] Lisinopril 10 mg PO DAILY 12/17/18 [History] Past Medical History - Past Health History Medical/Surgical History: Denies Medical/Surgical History HEENT History: Reports: Allergic Rhinitis Cardiovascular History: Reports: High Cholesterol, Hypertension Respiratory History: Reports: None Gastrointestinal History: Reports: Colon Polyp, Diverticulosis Genitourinary History: Reports: None RN PLACEMENT History: Reports: Musculoskeletal History: Reports: None Neurological History: Reports: None Psychiatric History: Reports: None Endocrine/Metabolic History: Reports: Obesity/BMI 30+, Other (See Below) Hematologic History: Reports: None Immunologic History: Reports: None Oncologic (Cancer) History: Reports: None Dermatologic History: Reports: None - Infectious Disease History Infectious Disease History: Reports: Chicken Pox, Shingles - Past Surgical History Head Surgeries/Procedures: Reports: None HEENT Surgical History: Reports: None, Naso-Sinus Surgery Cardiovascular Surgical History: Reports: None Respiratory Surgical History: Reports: None GI Surgical History: Reports: Colonoscopy Female Surgical History: Reports: Section Endocrine Surgical History: Reports: Thyroidectomy Other Endocrine Surgeries/Procedures: subtotal thyroidectomy Neurological Surgical History: Reports: None Musculoskeletal Surgical History: Reports: None Oncologic Surgical History: Reports: None Dermatological Surgical History: Reports: None Social & Family History - Family History Family Medical History: Noncontributory Cardiac: Reports: [place] - Caffeine Use Caffeine Use: Reports: Coffee ED ROS GENERAL - Review of Systems Review Of Systems: ROS reveals no pertinent complaints other than HPI. ED EXAM, GENERAL - Physical Exam Exam: See Below (See dictation) Course - Vital Signs Last Recorded V/S: Last Vital Signs Temp 36.3 C 12/17/18 04:57 Pulse 80 12/17/18 04:57 Resp 16 12/17/18 04:57 BP 179/89 H 12/17/18 04:57 Pulse Ox 95 12/17/18 04:57 - Orders/Labs/Meds Orders: Active Orders 24 hr Category Date Time Status Cardiac Monitoring [RC] . DIRECTED Care 12/17/18 05:08 Active EKG Documentation Completion [RC] STAT Care 12/17/18 05:08 Active Oxygen Therapy, ED [RC] ASDIRECTED Care 12/17/18 05:08 Active Pulse Oximetry [RC] ASDIRECTED Care 12/17/18 05:08 Active CULTURE URINE [RM] Stat Lab 12/17/18 06:25 Received Sodium Chloride 0.9% [Saline Flush] Med 12/17/18 05:09 Active 10 ml FLUSH ASDIRECTED PRN Sodium Chloride 0.9% [Saline Flush] Med 12/17/18 05:09 Active 2.5 ml FLUSH ASDIRECTED PRN Saline Lock Insert [OM.PC] Stat Oth 12/17/18 05:08 Ordered Medication Orders Sodium Chloride (Saline Flush) 10 ml FLUSH ASDIRECTED PRN PRN Reason: Keep Vein Open Last Admin: 12/17/18 05:23 Dose: 10 ml Sodium Chloride (Saline Flush) 2.5 ml FLUSH ASDIRECTED PRN PRN Reason: Keep Vein Open Last Admin: 12/17/18 05:23 Dose: 2.5 ml Labs: Laboratory Tests 12/17/18 12/17/18 12/17/18 Range/Units 05:00 05:00 06:25 WBC 8.08 (4.0-11.0) K/uL RBC 4.81 (4.30-5.90) M/uL Hgb 14.6 (12.0-16.0) g/dL Hct 43.6 (36.0-46.0) % MCV 90.6 (80.0-98.0) fL MCH 30.4 (27.0-32.0) pg MCHC 33.5 (31.0-37.0) g/dL RDW Std Deviation 44.2 (28.0-62.0) fl RDW Coeff of Oscar 13 (11.0-15.0) % Plt Count 258 (150-400) K/uL MPV 9.60 (7.40-12.00) fL Neut % (Auto) 52.0 (48.0-80.0) % Lymph % (Auto) 35.8 (16.0-40.0) % Marion % (Auto) 8.2 (0.0-15.0) % Eos % (Auto) 3.8 (0.0-7.0) % Baso % (Auto) 0.2 (0.0-1.5) % Neut # (Auto) 4.2 (1.4-5.7) K/uL Lymph # (Auto) 2.9 H (0.6-2.4) K/uL Marion # (Auto) 0.7 (0.0-0.8) K/uL Eos # (Auto) 0.3 (0.0-0.7) K/uL Baso # (Auto) 0.0 (0.0-0.1) K/uL Nucleated RBC % 0.0 /100WBC Nucleated RBCs # 0 K/uL Sodium 141 (136-145) mmol/L Potassium 4.0 (3.5-5.1) mmol/L Chloride 105 (98-107) mmol/L Carbon Dioxide 24.1 (21.0-32.0) mmol/L BUN 16 (7.0-18.0) mg/dL Creatinine 1.0 (0.6-1.0) mg/dL Est Cr Clr Drug Dosing 50.11 mL/min Estimated GFR (MDRD) 56.7 ml/min Glucose 124 H (74-106) mg/dL Calcium 9.5 (8.5-10.1) mg/dL Total Bilirubin 0.3 (0.2-1.0) mg/dL AST 30 (15-37) IU/L ALT 48 (14-63) IU/L Alkaline Phosphatase 93 (46-116) U/L Troponin I < 0.050 (0.000-0.056) ng/mL Total Protein 6.8 (6.4-8.2) g/dL Albumin 4.0 (3.4-5.0) g/dL Globulin 2.8 (2.6-4.0) g/dL Albumin/Globulin Ratio 1.4 (0.9-1.6) TSH 3rd Generation 4.16 H (0.36-3.74) uIU/mL Urine Color YELLOW Urine Appearance HAZY Urine pH 6.0 (5.0-8.0) Ur Specific [place] <= 1.005 (1.001-1.035) Urine Protein NEGATIVE (NEGATIVE) mg/dL Urine Glucose (UA) NEGATIVE (NEGATIVE) mg/dL Urine Ketones NEGATIVE (NEGATIVE) mg/dL Urine Occult Blood NEGATIVE (NEGATIVE) Urine Nitrite NEGATIVE (NEGATIVE) Urine Bilirubin NEGATIVE (NEGATIVE) Urine Urobilinogen 0.2 (<2.0) EU/dL Ur Leukocyte Esterase TRACE H (NEGATIVE) Urine RBC 0-1 (0-2/HPF) Urine WBC 1-2 (0-5/HPF) Ur Epithelial Cells RARE (NONE-FEW) Urine Bacteria RARE (NEGATIVE) Meds: Medications Generic Name Dose Route Start Last Admin Trade Name Cristhianq PRN Reason Stop Dose Admin Sodium Chloride 10 ml 12/17/18 05:09 12/17/18 05:23 Saline Flush FLUSH 10 ml ASDIRECTED PRN Administration Keep Vein Open Sodium Chloride 2.5 ml 12/17/18 05:09 12/17/18 05:23 Saline Flush FLUSH 2.5 ml ASDIRECTED PRN Administration Keep Vein Open Discontinued Medications Generic Name Dose Route Start Last Admin Trade Name Hetal PRN Reason Stop Dose Admin Diphenhydramine HCl 25 mg 12/17/18 05:09 12/17/18 05:22 Benadryl IVPUSH 12/17/18 05:10 25 mg ONETIME ONE Administration Sodium Chloride 1,000 mls @ 999 mls/hr 12/17/18 05:09 12/17/18 05:21 Normal Saline IV 12/17/18 06:09 999 mls/hr STAT ONE Administration Ketorolac Tromethamine 30 mg 12/17/18 05:09 12/17/18 05:22 Toradol IVPUSH 12/17/18 05:10 30 mg ONETIME ONE Administration Methylprednisolone Sodium Succinate 125 mg 12/17/18 05:09 12/17/18 05:22 Solu-Medrol IVPUSH 12/17/18 05:10 125 mg ONETIME ONE Administration Ondansetron HCl 4 mg 12/17/18 05:09 12/17/18 05:22 Zofran IVPUSH 12/17/18 05:10 4 mg ONETIME ONE Administration Departure - Departure Time of Disposition: 06:49 Disposition: Home, Self-Care 01 Condition: Good Clinical Impression: Episodic headache Qualifiers: Headache type: unspecified Intractability: not intractable Qualified Code(s): R51 - Headache - Discharge Information Referrals: PCP,None [Primary Care Provider] - Additional Instructions: The following information is given to patients seen in the emergency department who are being discharged to home. This information is to outline your options for follow-up care. We provide all patients seen in our emergency department with a follow-up referral. The need for follow-up, as well as the timing and circumstances, are variable depending upon the specifics of your emergency department visit. If you don't have a primary care physician on staff, we will provide you with a referral. We always advise you to contact your personal physician following an emergency department visit to inform them of the circumstance of the visit and for follow-up with them and/or the need for any referrals to a consulting specialist. The emergency department will also refer you to a specialist when appropriate. This referral assures that you have the opportunity for followup care with a specialist. All of these measure are taken in an effort to provide you with optimal care, which includes your followup. Under all circumstances we always encourage you to contact your private physician who remains a resource for coordinating your care. When calling for followup care, please make the office aware that this follow-up is from your recent emergency room visit. If for any reason you are refused follow-up, please contact the [facility] emergency department at and ask to speak to the emergency department charge nurse. [address] [place] [address] [facility] [address], [address] [place] [address] Please continue to monitor your headaches and start a headache journal to document when they're occurring and the events around them. These call and discuss these headaches with Dr. Zepeda. Return to ER as needed and as discussed. - My Orders Last 24 Hours: My Active Orders 12/17/18 05:08 Cardiac Monitoring [RC] . DIRECTED EKG Documentation Completion [RC] STAT Oxygen Therapy, ED [RC] ASDIRECTED Pulse Oximetry [RC] ASDIRECTED Saline Lock Insert [OM.PC] Stat 12/17/18 05:09 Sodium Chloride 0.9% [Saline Flush] 10 ml FLUSH ASDIRECTED PRN Sodium Chloride 0.9% [Saline Flush] 2.5 ml FLUSH ASDIRECTED PRN 12/17/18 06:25 CULTURE URINE [RM] Stat - Assessment/Plan Last 24 Hours: My Active Orders 12/17/18 05:08 Cardiac Monitoring [RC] . DIRECTED EKG Documentation Completion [RC] STAT Oxygen Therapy, ED [RC] ASDIRECTED Pulse Oximetry [RC] ASDIRECTED Saline Lock Insert [OM.PC] Stat 12/17/18 05:09 Sodium Chloride 0.9% [Saline Flush] 10 ml FLUSH ASDIRECTED PRN Sodium Chloride 0.9% [Saline Flush] 2.5 ml FLUSH ASDIRECTED PRN 12/17/18 06:25 CULTURE URINE [RM] Stat
[2018-12-17 05:38] LABS: BLOOD UREA NITROGEN,BUN 16 mg/dL (7.0-18.0); CARBON DIOXIDE,CO2 24.1 mmol/L (21.0-32.0); CHLORIDE,CL 105 mmol/L (98-107); GLUCOSE RANDOM 124 mg/dL (74-106); SODIUM,NA 141 mmol/L (136-145)
--- NOTE | 2018-12-17 06:10 | CT ---
INDICATION: Dizziness; tingling on the left side of the body for the last 2 days; history of TIA 3 weeks ago. COMPARISON: CT head November 14, 2018; CT angio head and neck November 152018. TECHNIQUE: CT head without intravenous contrast; coronal and sagittal reformats. FINDINGS: No evidence of intracranial hemorrhage. No mass lesions. no evidence of shift of the midline structures . The calvarium is unremarkable . Low densities identified in the periventricular as well as deep white matter secondary to small vessel disease ;stable in appearance. IMPRESSION: 1. No evidence of intracranial hemorrhage. 2. No mass lesions or shift of the midline structures. 3. Periventricular low density secondary to small vessel disease. 4. No interval change when compared to November 14, 2018 . Please note that all CT scans at this facility use dose modulation, iterative reconstruction, and/or weight-based dosing when appropriate to reduce radiation dose to as low as reasonably achievable. Dictated by Corey Loza MD @ Dec 17 2018 6:03AM Signed by Dr. Corey Loza @ Dec 17 2018 6:07AM
[2018-12-17 07:22] VITALS: BP 121/85; PULSE 67
== END 2018-12-17 07:22 | disposition home or self-care (01) ==
LOC: MW.ED 04:53
DX: R51 Headache (principal); I10 Essential (primary) hypertension; E78.00 Pure hypercholesterolemia, unspecified; E66.9 Obesity, unspecified; Z88.0 Allergy status to penicillin; Z88.1 Allergy status to other antibiotic agents; Z88.8 Allergy status to other drugs, medicaments and biological substances; Z79.899 Other long term (current) drug therapy; Z68.30 Body mass index [BMI] 30.0-30.9, adult; Z98.890 Other specified postprocedural states; Z79.82 Long term (current) use of aspirin
CPT/HCPCS: 70450; 80053; 81001; 84443; 84484; 85025; 87086; 93005; 96361; 96374; 96375; 99284; J1200; J1885; J2405; J2930; J7040

== ENCOUNTER 2018-12-19 11:26 | Emergency (ER) | payer BC ==
[2018-12-19] MEDS ORDERED: Sodium Chloride 0.9% 2.5 ML Syringe FLUSH PRN (11:30)
[2018-12-19] MEDS ORDERED: Sodium Chloride 0.9% 10 ML SDV IV PRN (11:30)
[2018-12-19] MEDS ORDERED: Sodium Chloride 0.9% 10 ML Syringe FLUSH PRN (11:30)
--- NOTE | 2018-12-19 11:39 | EDM.PDOC ---
ED HPI GENERAL MEDICAL PROBLEM - General Chief Complaint: Neurological Problem Stated Complaint: STROKE CODE Time Seen by Provider: 12/19/18 11:32 Source of Information: Reports: Patient History Limitations: Reports: No Limitations - History of Present Illness INITIAL COMMENTS - FREE TEXT/NARRATIVE: HISTORY AND PHYSICAL: Stroke Code was called upon patient arrival. Dr Garcia was directly involved in patient care. History of present illness: Patient is a 58-year-old female who presents to the emergency room today with complaints of left sided numbness and tingling. Patient states that she had a TIA approximately one month ago and was matted to our facility for further evaluation. She did have a MRI and CTA of the head and neck. She followed up with Dr. Rae who stated she no longer needed to follow with neurology. She also did have a exercise stress test done while in [facility]. She states that the results had no significant findings. She was seen in our emergency room on 12/17 for a severe headache and had been admitted overnight. Yesterday she had generally felt unwell but much better than she did the day prior. This morning she had noticed some slight numbness and tingling to the left side of her face and tongue. 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 She states she felt symptoms getting stronger, had tingling sensation to the left side of her body at this time, so she left. She states that she has an appointment today with Dr. Zepeda at 4 PM. She did attempt to call their office and get a hold of her but was informed by the nurse that she should probably come to the emergency room. She states she was frequently assessing her face to make sure she had no drooping or drooling. She has not had any weakness or deficits that she is aware of. No recent injury, trauma or falls. Review of systems: As per history of present illness and below otherwise all systems reviewed and negative. Past medical history: As per history of present illness and as reviewed below otherwise noncontributory. Surgical history: As per history of present illness and as reviewed below otherwise noncontributory. Social history: See social history for further information Family history: As per history of present illness and as reviewed below otherwise noncontributory. Physical exam: General: Well developed and well nourished 58-year-old female. Alert and oriented. Nontoxic appearing and in no acute distress. HEENT: Atraumatic, normocephalic, pupils equal and reactive bilaterally, negative for conjunctival pallor or scleral icterus, mucous membranes moist, TMs normal bilaterally, throat clear, neck supple, nontender, trachea midline. No drooling or trismus noted. No meningeal signs. No hot potato voice noted. Lungs: Clear to auscultation, breath sounds equal bilaterally, chest nontender. Heart: S1S2, regular rate and rhythm without overt murmur Abdomen: Soft, nondistended, nontender. Negative for masses or hepatosplenomegaly. Negative for costovertebral tenderness. Pelvis: Stable nontender. Skin: Intact, warm, dry. No lesions or rashes noted. Extremities: Atraumatic, moves all extremities per self without difficulty or deficits, negative for cords or calf pain. Neurovascular unremarkable. Neuro: Awake, alert, oriented. Cranial nerves II through XII unremarkable. Cerebellum unremarkable. Motor and sensory unremarkable throughout. Exam nonfocal. Notes: GCS: 15, NIH 1 (unable to differentiate sharp from dull sensation to the upper and lower extremity). Patient's vital signs are stable. She currently has the sensation of dull numbness/tingling to the left side of her body. No deficits or weakness noted. While reviewing her previous imaging for similar symptoms I did note that they were questioning Lyme disease. Patient states that to her knowledge this test has not been ran. I will add it to her lab work today. Today's head CT shows white matter changes likely representing small vessel ischemic demyelination change. Small air-fluid level within both maxillary sinuses. Could represent a pre-existing sinusitis. No acute intracranial abnormality is appreciated. Dr. Zepeda was consulted on this case. This case was discussed in length along with results of today with Dr. Zepeda. She is comfortable with the patient being discharged to home as she does have an appointment today at 4 PM. She sees no need for this patient to be transferred or admitted at this time, as long as the patient is comfortable with her plan. Discussed diagnostics with patient. She states her symptoms have resolved. She does not want admission and states she will follow up at her appointment today at [address] Zepeda. She offers no current complaints or concerns. We discussed signs and symptoms that would prompt him to return to the emergency room. She voices understanding and is agreeable to plan of care. Diagnostics: CBC, CMP, Troponin, EKG, CXR, Head CT, INR, TSH, UA, [employer]: Saline Lock Impression: Paresthesia Rule out TIA Plan: Please keep your appointment with Dr. Zepeda and attend that at 4:00. As we discussed if your symptoms should return or worsen or new symptoms develop, please return to the emergency room ADAM. Definitive disposition and diagnosis as appropriate pending reevaluation and review of above. - Related Data Allergies Allergy/AdvReac Type Severity Reaction Status Date / Time amoxicillin [From Augmentin] Allergy Rash Verified 12/19/18 11:55 cefprozil [From Cefzil] Allergy Rash Verified 12/19/18 11:55 ciprofloxacin [From Cipro] Allergy Body Aches Verified 12/19/18 11:55 clavulanic acid Allergy Rash Verified 12/19/18 11:55 [From Augmentin] hydrochlorothiazide Allergy Shortness Verified 12/19/18 11:55 of Breath Penicillins Allergy Rash Verified 12/19/18 11:55 varenicline [From Chantix] Allergy Rash Verified 12/19/18 11:55 Home Meds: Home Meds Nicotine Polacrilex [Nicorette] 1 piece gum CHEW Q1H 05/28/17 [History] Cholecalciferol (Vitamin D3) [Vitamin D3] 200 units PO DAILY 07/17/18 [History] [place]-3/DHA/Epa/Fish Oil [Fish Oil 1,000 mg Softgel] 2 tab PO DAILY 07/17/18 [ History] Aspirin 81 mg PO DAILY 30 Days #30 tab.chew 11/15/18 [Rx] Rosuvastatin Calcium [Crestor] 40 mg PO DAILY 30 Days #30 tablet 11/15/18 [Rx] Lisinopril 10 mg PO DAILY 12/17/18 [History] Past Medical History - Past Health History Medical/Surgical History: Denies Medical/Surgical History HEENT History: Reports: Allergic Rhinitis Cardiovascular History: Reports: High Cholesterol, Hypertension Respiratory History: Reports: None Gastrointestinal History: Reports: Colon Polyp, Diverticulosis Genitourinary History: Reports: None 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: Musculoskeletal History: Reports: None Neurological History: Reports: None Other Neuro History: 10/2018 TIA Psychiatric History: Reports: None Endocrine/Metabolic History: Reports: Obesity/BMI 30+, Other (See Below) Hematologic History: Reports: None Immunologic History: Reports: None Oncologic (Cancer) History: Reports: None Dermatologic History: Reports: None - Infectious Disease History Infectious Disease History: Reports: Chicken Pox, Shingles - Past Surgical History Head Surgeries/Procedures: Reports: None HEENT Surgical History: Reports: None, Naso-Sinus Surgery Cardiovascular Surgical History: Reports: None Respiratory Surgical History: Reports: None GI Surgical History: Reports: Colonoscopy Female Surgical History: Reports: Section Endocrine Surgical History: Reports: Thyroidectomy Other Endocrine Surgeries/Procedures: subtotal thyroidectomy Neurological Surgical History: Reports: None Musculoskeletal Surgical History: Reports: None Oncologic Surgical History: Reports: None Dermatological Surgical History: Reports: None Social & Family History - Family History Family Medical History: Noncontributory Cardiac: Reports: [place] - Caffeine Use Caffeine Use: Reports: Coffee ED ROS GENERAL - Review of Systems Review Of Systems: ROS reveals no pertinent complaints other than HPI. ED EXAM, NEURO - Physical Exam Exam: See Below (See dictation) Course - Vital Signs Last Recorded V/S: Last Vital Signs Temp 97.7 F 12/19/18 11:26 Pulse 70 12/19/18 13:00 Resp 20 12/19/18 13:00 BP 108/67 12/19/18 13:00 Pulse Ox 95 12/19/18 13:00 - Orders/Labs/Meds Orders: Active Orders 24 hr Category Date Time Status Assess Neurological Status [RC] ASDIRECTED Care 12/19/18 11:30 Active Bedrest [RC] ASDIRECTED Care 12/19/18 11:30 Active Cardiac Monitoring [RC] . DIRECTED Care 12/19/18 11:30 Active EKG Documentation Completion [RC] STAT Care 12/19/18 11:30 Active Height and Weight [RC] UPON Care 12/19/18 11:30 Active Initiate Acute Stroke Protocol [RC] STAT Care 12/19/18 11:30 Active NIH Stroke Scale [RC] ASDIRECTED Care 12/19/18 11:30 Active Nursing Bedside Swallow Screen [RC] ASDIRECTED Care 12/19/18 11:30 Active Oxygen Therapy [RC] ASDIRECTED Care 12/19/18 11:30 Active Stroke Education, General [RC] Click to Edit Care 12/19/18 11:30 Active Vital Signs [RC] Q15M Care 12/19/18 11:30 Active LYME, TOTAL AB TEST/REFLEX [REF] Stat Lab 12/19/18 11:44 Received Peripheral IV Insertion Adult [OM.PC] Stat Oth 12/19/18 11:30 Ordered Peripheral IV Insertion Adult [OM.PC] Stat Ot 12/19/18 11:30 Ordered Labs: Laboratory Tests 12/19/18 12/19/18 12/19/18 Range/Units 11:44 11:44 11:44 WBC 9.78 (4.0-11.0) K/uL RBC 4.70 (4.30-5.90) M/uL Hgb 14.3 (12.0-16.0) g/dL Hct 42.7 (36.0-46.0) % MCV 90.9 (80.0-98.0) fL MCH 30.4 (27.0-32.0) pg MCHC 33.5 (31.0-37.0) g/dL RDW Std Deviation 44.9 (28.0-62.0) fl RDW Coeff of Oscar 14 (11.0-15.0) % Plt Count 248 (150-400) K/uL MPV 9.50 (7.40-12.00) fL Neut % (Auto) 72.9 (48.0-80.0) % Lymph % (Auto) 19.3 (16.0-40.0) % Price % (Auto) 6.1 (0.0-15.0) % Eos % (Auto) 1.5 (0.0-7.0) % Baso % (Auto) 0.2 (0.0-1.5) % Neut # (Auto) 7.1 H (1.4-5.7) K/uL Lymph # (Auto) 1.9 (0.6-2.4) K/uL Price # (Auto) 0.6 (0.0-0.8) K/uL Eos # (Auto) 0.2 (0.0-0.7) K/uL Baso # (Auto) 0.0 (0.0-0.1) K/uL Nucleated RBC % 0.0 /100WBC Nucleated RBCs # 0 K/uL INR 0.97 APTT 24.7 (18.6-31.3) SEC Sodium 143 (136-145) mmol/L Potassium 3.9 (3.5-5.1) mmol/L Chloride 106 (98-107) mmol/L Carbon Dioxide 23.9 (21.0-32.0) mmol/L BUN 13 (7.0-18.0) mg/dL Creatinine 1.0 (0.6-1.0) mg/dL Est Cr Clr Drug Dosing 50.11 mL/min Estimated GFR (MDRD) 56.7 ml/min Glucose 101 (74-106) mg/dL Calcium 9.1 (8.5-10.1) mg/dL Total Bilirubin 0.5 (0.2-1.0) mg/dL AST 28 (15-37) IU/L ALT 46 (14-63) IU/L Alkaline Phosphatase 95 (46-116) U/L Troponin I < 0.050 (0.000-0.056) ng/mL Total Protein 6.9 (6.4-8.2) g/dL Albumin 4.2 (3.4-5.0) g/dL Globulin 2.7 (2.6-4.0) g/dL Albumin/Globulin Ratio 1.6 (0.9-1.6) TSH 3rd Generation 1.67 (0.36-3.74) uIU/mL Meds: Medications Discontinued Medications Generic Name Dose Route Start Last Admin Trade Name Freq PRN Reason Stop Dose Admin Sodium Chloride 10 ml 12/19/18 11:30 Saline Flush FLUSH ASDIRECTED PRN Keep Vein Open Sodium Chloride 2.5 ml 12/19/18 11:30 Saline Flush FLUSH ASDIRECTED PRN Keep Vein Open Sodium Chloride 10 ml 12/19/18 11:30 Normal Saline IV ASDIRECTED PRN IV Use Departure - Departure Time of Disposition: 12:50 Disposition: Home, Self-Care 01 Clinical Impression: Paresthesia - Discharge Information Instructions: Paresthesia, [id number] Referrals: PCP,Carlos [Primary Care Provider] - Forms: ED Department Discharge Additional Instructions: The following information is given to patients seen in the emergency department who are being discharged to home. This information is to outline your options for follow-up care. We provide all patients seen in our emergency department with a follow-up referral. The need for follow-up, as well as the timing and circumstances, are variable depending upon the specifics of your emergency department visit. If you don't have a primary care physician on staff, we will provide you with a referral. We always advise you to contact your personal physician following an emergency department visit to inform them of the circumstance of the visit and for follow-up with them and/or the need for any referrals to a consulting specialist. The emergency department will also refer you to a specialist when appropriate. This referral assures that you have the opportunity for follow-up care with a specialist. All of these measure are taken in an effort to provide you with optimal care, which includes your follow-up. Under all circumstances we always encourage you to contact your private physician who remains a resource for coordinating your care. When calling for follow-up care, please make the office aware that this follow-up is from your recent emergency room visit. If for any reason you are refused follow-up, please contact the [facility] Emergency Department at and asked to speak to the emergency department charge nurse. [facility] Specialty Care - Neurology Professional Building [address] [place] [address], [address] [place] [address] Please keep your appointment with Dr. Zepeda and attend that at 4:00. As we discussed if your symptoms should return or worsen or new symptoms develop, please return to the emergency room ADAM. - My Orders Last 24 Hours: My Active Orders 12/19/18 11:44 LYME, TOTAL AB TEST/REFLEX [REF] Stat - Assessment/Plan Last 24 Hours: My Active Orders 12/19/18 11:44 LYME, TOTAL AB TEST/REFLEX [REF] Stat
--- NOTE | 2018-12-19 12:18 | CT ---
Head CT Technique: Multiple axial sections through the brain were obtained. Intravenous contrast was not utilized. Comparison: Prior head CT exam of 12/17/18. Findings: Ventricles along with basal cisterns and sulci over the convexities are within normal limits for the patient's age. Diminished density is noted within portions of the subcortical and periventricular white matter which appears similar to previous exam which is most likely due to small vessel ischemic demyelination change. No other abnormal parenchymal densities are seen. No evidence of intracranial hemorrhage. No midline shift or mass effect is appreciated. Bone window settings were reviewed which shows no acute calvarial abnormality. Small air-fluid levels are noted within both maxillary sinuses. Mastoid sinuses are clear. Impression: 1. White matter change likely representing small vessel ischemic demyelination change. 2. Small air-fluid levels within both maxillary sinuses. Findings could represent pre-existing sinusitis as well as retained secretions. 3. No acute intracranial abnormality is appreciated. Note: If patient's symptoms warrant further evaluation, MRI could then be considered. Diagnostic code #3 MTDD
[2018-12-19 12:25] LABS: BLOOD UREA NITROGEN,BUN 13 mg/dL (7.0-18.0); CARBON DIOXIDE,CO2 23.9 mmol/L (21.0-32.0); CHLORIDE,CL 106 mmol/L (98-107); GLUCOSE RANDOM 101 mg/dL (74-106); POTASSIUM,K 3.9 mmol/L (3.5-5.1); SODIUM,NA 143 mmol/L (136-145)
[2018-12-19 13:01] VITALS: BP 108/67; PULSE 70
== END 2018-12-19 13:05 | disposition home or self-care (01) ==
LOC: MW.ED 11:26
DX: R20.2 Paresthesia of skin (principal); R20.0 Anesthesia of skin; I10 Essential (primary) hypertension; E66.9 Obesity, unspecified; Z86.73 Personal history of transient ischemic attack (TIA), and cerebral infarction without residual deficits; Z88.1 Allergy status to other antibiotic agents; Z88.0 Allergy status to penicillin; Z88.8 Allergy status to other drugs, medicaments and biological substances; Z79.82 Long term (current) use of aspirin; Z79.899 Other long term (current) drug therapy
CPT/HCPCS: 36415; 70450; 70450-26; 80053; 84443; 84484; 85025; 85610; 85730; 86618; 93005; 99284; 99284-25

== ENCOUNTER 2019-10-21 08:49 | Day surgery (SDC) | payer BC ==
[~2019-10-21 08:49] MED LIST changes: +Lidocaine 2% 5 ML SDV ONE; +Propofol 200 MG/20 ML SDV ONE; +fentaNYL 100 MCG/2 ML SDV ONE
--- NOTE | 2019-10-21 09:41 | PCM.PREANE ---
Preanesthetic Assessment - Anesthesia/Transfusion/Family Hx Anesthesia History: Prior Anesthesia Without Reaction Family History of Anesthesia Reaction: No Transfusion History: No Prior Transfusion(s) Intubation History: Unknown - Review of Systems General: No Symptoms Pulmonary: No Symptoms Cardiovascular: No Symptoms Gastrointestinal: No Symptoms, Other (multiple colon polyps 07/19, diverticulosis) Neurological: No Symptoms Other: Reports: None - Physical Assessment NPO Status Date: 10/20/19 NPO Status Time: 21:00 Vital Signs: Last Vital Signs Temp 36.6 C 10/21/19 08:58 Pulse 85 10/21/19 08:58 Resp 16 10/21/19 08:58 BP 136/95 H 10/21/19 08:58 Pulse Ox 95 10/21/19 08:58 Height: 5 ft 3 in Weight: 87.09 kg ASA Class: 2 Mental Status: Alert & Oriented x3 Airway Class: Mallampati = 2 Dentition: Reports: Normal Dentition, Bridge (fixed left lower bridge), Implants (x1 upper left (back)) Thyro-Mental Finger Breadths: 3 Mouth Opening Finger Breadths: 3 ROM/Head Extension: Full Lungs: Clear to Auscultation, Normal Respiratory Effort Cardiovascular: Regular Rate, Regular Rhythm - Allergies Allergies/Adverse Reactions: Allergies Allergy/AdvReac Type Severity Reaction Status Date / Time amoxicillin [From Augmentin] Allergy Rash Verified 09/26/19 13:03 cefprozil [From Cefzil] Allergy Rash Verified 09/26/19 13:03 ciprofloxacin [From Cipro] Allergy Body Aches Verified 09/26/19 13:03 clavulanic acid Allergy Rash Verified 09/26/19 13:03 [From Augmentin] hydrochlorothiazide Allergy Shortness Verified 09/26/19 13:03 of Breath Penicillins Allergy Rash Verified 09/26/19 13:03 varenicline [From Chantix] Allergy Rash Verified 09/26/19 13:03 - Blood Blood Available: No - Anesthesia Plan Pre-Op Medication Ordered: None - Acknowledgements Anesthesia Type Planned: MAC Pt an Appropriate Candidate for the Planned Anesthesia: Yes Alternatives and Risks of Anesthesia Discussed w Pt/Guardian: Yes Pt/Guardian Understands and Agrees with Anesthesia Plan: Yes PreAnesthesia Questionnaire - Past Health History Medical/Surgical History: Denies Medical/Surgical History HEENT History: Reports: Allergic Rhinitis Cardiovascular History: Reports: High Cholesterol, Hypertension, Other (See Below) (h/o palpitations) Respiratory History: Reports: None Gastrointestinal History: Reports: Colon Polyp, Diverticulosis, Hiatal Hernia Genitourinary History: Reports: 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 BP under control since Psychiatric History: Reports: None Endocrine/Metabolic History: Reports: Obesity/BMI 30+ (BMI 34.0) Hematologic History: Reports: None Immunologic History: Reports: None Oncologic (Cancer) History: Reports: None Dermatologic History: Reports: None - Infectious Disease History Infectious Disease History: Reports: Chicken Pox, Shingles - Past Surgical History Head Surgeries/Procedures: Reports: None HEENT Surgical History: Reports: None, Naso-Sinus Surgery Cardiovascular Surgical History: Reports: None Respiratory Surgical History: Reports: None GI Surgical History: Reports: Colonoscopy Female Surgical History: Reports: Section Endocrine Surgical History: Reports: Thyroidectomy Other Endocrine Surgeries/Procedures: subtotal thyroidectomy Neurological Surgical History: Reports: None Musculoskeletal Surgical History: Reports: None Oncologic Surgical History: Reports: None Dermatological Surgical History: Reports: None - SUBSTANCE USE Smoking Status *Q: Former Smoker Tobacco Use Within Last Twelve Months: No - HOME MEDS Home Medications: Home Meds Nicotine Polacrilex [Nicorette] 1 piece gum CHEW Q1H PRN 05/28/17 [History] Cholecalciferol (Vitamin D3) [Vitamin D3] 2,000 units PO DAILY 07/17/18 [History] Rosuvastatin Calcium [Crestor] 40 mg PO DAILY 30 Days #30 tablet 11/15/18 [Rx] Aspirin 81 mg CHEW DAILY 09/26/19 [History] Losartan Potassium 50 mg PO DAILY 09/26/19 [History] Zinc Gluconate [Zinc] 50 mg PO DAILY 09/26/19 [History] - CURRENT (IN HOUSE) MEDS Current Meds: Current Medications Lactated Ringer's (Ringers, Lactated) 1,000 mls @ 125 mls/hr IV ASDIRECTED LAURA Sodium Chloride (Saline Flush) 10 ml FLUSH ASDIRECTED PRN PRN Reason: Keep Vein Open Sodium Chloride (Saline Flush) 2.5 ml FLUSH ASDIRECTED PRN PRN Reason: Keep Vein Open Sodium Chloride (Saline Flush) 10 ml FLUSH ASDIRECTED PRN PRN Reason: Keep Vein Open Sodium Chloride (Saline Flush) 2.5 ml FLUSH ASDIRECTED PRN PRN Reason: Keep Vein Open Sodium Chloride (Normal Saline) 10 ml IV ASDIRECTED PRN PRN Reason: IV Use Discontinued Medications Fentanyl (Sublimaze) Confirm Administered Dose 100 mcg .ROUTE .STK-MED ONE Stop: 10/21/19 08:30 Lidocaine (Xylocaine-Mpf 2%) Confirm Administered Dose 5 ml .ROUTE .STK-MED ONE Stop: 10/21/19 08:30 Propofol (Diprivan 20 Ml) Confirm Administered Dose 200 mg .ROUTE .STK-MED ONE Stop: 10/21/19 08:30
[2019-10-21] MEDS ORDERED: Midazolam 1 MG/ML 2 ML SDV ONE (10:37)
[2019-10-21] MEDS ORDERED: Propofol 200 MG/20 ML SDV ONE (10:37)
[2019-10-21 11:14] VITALS: BP 113/68; PULSE 80
--- NOTE | 2019-10-21 11:14 | PCM.OPNOTE ---
- General Post-Op/Procedure Note Date of Surgery/Procedure: 10/21/19 Operative Procedure(s): Diagnsotic EGD and colonoscopy Findings: Hiatal hernia, transverse colon polyp, ascending colon polyp Pre Op Diagnosis: Epigastric abdominal pain, history of colon polyps Post-Op Diagnosis: Hiatal hernia, transverse colon polyp, ascending colon polyp [place] [facility] [place]geon: Clarisse Fry Condition: Good Free Text/Narrative:: Intake & Output 10/20/19 10/21/19 10/21/19 22:59 06:59 14:59 Intake Total 800 Balance 800
--- NOTE | 2019-10-21 11:47 | PCM.POSTAN ---
POST ANESTHESIA ASSESSMENT - MENTAL STATUS Mental Status: Alert, Oriented - VITAL SIGNS Vital Signs: Last Vital Signs Temp 35 C L 10/21/19 11:10 Pulse 80 10/21/19 11:10 Resp 14 10/21/19 11:10 BP 113/68 10/21/19 11:10 Pulse Ox 93 L 10/21/19 11:10 - RESPIRATORY Respiratory Status: Respiratory Rate WNL, Airway Patent, O2 Saturation Stable - CARDIOVASCULAR CV Status: Pulse Rate WNL, Blood Pressure Stable - GASTROINTESTINAL GI Status: No Symptoms - PAIN Pain Score: 0 - POST OP HYDRATION Hydration Status: Adequate & Stable - OBSERVATIONS Free Text/Narrative:: No anesthesia problems
--- NOTE | 2019-10-21 12:03 | PCM48HPAN ---
Post Anesthesia Note - EVALUATION WITHIN 48HRS OF ANESTHETIC Vital Signs in Normal Range: Yes Patient Participated in Evaluation: Yes Respiratory Function Stable: Yes Airway Patent: Yes Cardiovascular Function Stable: Yes Hydration Status Stable: Yes Pain Control Satisfactory: Yes Nausea and Vomiting Control Satisfactory: Yes Mental Status Recovered: Yes Vital Signs: Last Vital Signs Temp 35 C L 10/21/19 11:10 Pulse 80 10/21/19 11:10 Resp 14 10/21/19 11:10 BP 113/68 10/21/19 11:10 Pulse Ox 93 L 10/21/19 11:10 - COMMENTS/OBSERVATIONS Free Text/Narrative:: No anesthesia problems
--- NOTE | 2019-10-21 13:22 | OR ---
SURGEON: CLARISSE FRY MD DATE OF PROCEDURE: 10/21/2019 PREOPERATIVE DIAGNOSES: Epigastric pain, history of colon polyps. POSTOPERATIVE DIAGNOSES: 1. Hiatal hernia. 2. Transverse colon polyp. 3. Ascending colon polyp. PROCEDURE PERFORMED: Diagnostic esophagogastroduodenoscopy and colonoscopy. PRIMARY SURGEON: Clarisse Fry MD ANESTHESIA: MAC. INSTRUMENT USED: Olympus endoscope and colonoscope. EXTENT OF EXAM: To the second portion of duodenum, to the cecum. PREPARATION: Good. LIMITATIONS: None. INDICATIONS FOR EXAMINATION: The patient is a 59-year-old female who had multiple polyps removed during a previous colonoscopy and is due for repeat colonoscopy. She has also been complaining of some epigastric pain. A CT scan of the abdomen and pelvis showed a small hiatal hernia. I explained the need for both procedures; a diagnostic colonoscopy and EGD. I explained the procedures, expected perioperative course, and risks. She verbalized understanding and wishes to proceed. PROCEDURE IN DETAIL: The patient was brought into the endoscopy suite and placed in the left lateral decubitus position. A time-out was completed verifying the patient's name, age, date of , allergies, and procedure to be performed. A bite block was placed in the patient's mouth. Monitored anesthesia care was induced and continuous oxygen was provided via nasal cannula throughout the procedure. After adequate sedation was achieved, a well-lubricated endoscope was placed in the patient's mouth and advanced under direct visualization to the second portion of duodenum. This appeared normal and a photograph was taken. The scope was then fully withdrawn while examining the color, texture, anatomy, and integrity of the mucosa of the upper GI tract. The duodenum appeared normal. The scope was brought into the stomach and a photograph was taken of the pylorus and GE junction. The patient was noted to have a very small hiatal hernia. The gastric mucosa was free of inflammation or ulceration. Biopsies were taken of the gastric antrum, body, and fundus and sent for histologic review and H. pylori testing. The scope was brought into the distal esophagus and a photograph was taken of the Z-line. This appeared normal and the distal esophageal mucosa appeared to be free of pathology. The remainder of the esophageal mucosa was normal. The scope was removed and this portion of the procedure terminated. I then performed a digital rectal exam. This was normal. A well-lubricated colonoscope was inserted in the rectum and advanced under direct visualization to the level of the cecum. The cecum was identified by both visual and anatomic landmarks. A photograph was taken of the cecal cap as well as with the scope retroflexed within the cecum. The scope was then fully withdrawn while examining the color, texture, anatomy, and integrity of the mucosa from the cecum to the anal canal. In the proximal ascending colon, the patient was noted to have a small sessile polyp. This was removed in piecemeal fashion using cold biopsy forceps. In the transverse colon, the patient had a similar appearing polyp. This was removed using cold biopsy forceps and sent to pathology, labeled as transverse colon polyp. The remainder of the colonic mucosa was normal. The scope was brought into the rectum and retroflexed to allow visualization of the anal canal opening. This appeared normal and a photograph was taken. The scope was then straightened out and fully withdrawn. The cecum to anus time was 9 minutes. The patient tolerated the procedure well and was transferred to the PACU in stable condition. ENDOSCOPIC DIAGNOSES: 1. Hiatal hernia. 2. Transverse colon polyp. 3. Ascending colon polyp. RECOMMENDATIONS: Follow up in clinic in 2 weeks. JOVANNA KIM /[id number]
== END 2019-10-21 11:30 | disposition home or self-care (01) ==
LOC: MW.SDS 08:49
PROVIDERS: ATTEND Surgery
DX: Z12.11 Encounter for screening for malignant neoplasm of colon (principal); D12.2 Benign neoplasm of ascending colon; D12.3 Benign neoplasm of transverse colon; K44.9 Diaphragmatic hernia without obstruction or gangrene; E78.00 Pure hypercholesterolemia, unspecified; E78.1 Pure hyperglyceridemia; I10 Essential (primary) hypertension; E66.9 Obesity, unspecified; Z86.010 Personal history of colon polyps; Z88.0 Allergy status to penicillin; Z88.1 Allergy status to other antibiotic agents; Z88.8 Allergy status to other drugs, medicaments and biological substances; Z79.82 Long term (current) use of aspirin; Z79.899 Other long term (current) drug therapy; Z68.34 Body mass index [BMI] 34.0-34.9, adult; Z87.891 Personal history of nicotine dependence
CPT/HCPCS: 00813; 88305; 88312; J2001; J2250; J2704; J3010; J7120

== ENCOUNTER 2020-03-09 09:07 | Emergency (ER) | payer BC ==
[2020-03-09] MEDS ORDERED: Sodium Chloride 0.9% 10 ML Syringe FLUSH PRN (09:28)
[2020-03-09] MEDS ORDERED: Sodium Chloride 0.9% 2.5 ML Syringe FLUSH PRN (09:28)
--- NOTE | 2020-03-09 09:37 | EDM.PDOC ---
ED HPI GENERAL MEDICAL PROBLEM - General Chief Complaint: General Stated Complaint: CHEST PAIN LFT SIDE NUMBNESS Time Seen by Provider: 03/09/20 09:10 Source of Information: Reports: Patient History Limitations: Reports: No Limitations - History of Present Illness INITIAL COMMENTS - FREE TEXT/NARRATIVE: 59-year-old female with history of TIA, HTN presents with nausea, dizziness, lightheadedness that started yesterday morning. She went to her routine workout and started feeling palpitations at 9:30 yesterday morning. She was doing light walks on a treadmill with sit ups and she noted that her heart rate went to 130s just with light exercise. She admits to palpitations, cough, nausea, but denies shortness of breath. She also notes intermittent left arm and left leg numbness that has been intermittent since the middle of January after she recovered from Covid. She was asymptomatic with the numbness until 2 PM yesterday, she thinks her left arm and leg numbness has improved and is mild at this point. She went to see her PCP today who sent her to the ER for assessment. 10 minutes prior to arrival she started noticing 2 out of 10, nonexertional nonradiating "burning" sensation to the midsternum, of which she attributes to her hiatal hernia. ROS: A 10-point review of systems, other than pertinent positives and negatives as stated per HPI, is otherwise negative Past medical history: No additional pertinent history Past Surgical history: No additional pertinent history Social history: No additional pertinent history Family history: No additional pertinent history PHYSICAL EXAM General: AOx4, GCS = 15, No distress HEENT: dry mucous membrane Neck: supple, no meningismus, no Kernig or Brudzinski Cardiac: S1S2 RRR Respiratory: CTAB, no crackles or rales, no wheezing Abdomen: Soft, nontender, no rebound or guarding, nondistended, no pulsatile mass. Back: nontender Musculoskeletal: NVI distally, no deformity Neuro: No focal deficits, NIHSS = 0, no hypoesthesia to bilateral upper extremity along radial, medial, ulnar nerve distributions - Related Data Allergies Allergy/AdvReac Type Severity Reaction Status Date / Time amoxicillin [From Augmentin] Allergy Rash Verified 03/09/20 09:20 cefprozil [From Cefzil] Allergy Rash Verified 03/09/20 09:20 ciprofloxacin [From Cipro] Allergy Body Aches Verified 03/09/20 09:20 clavulanic acid Allergy Rash Verified 03/09/20 09:20 [From Augmentin] hydrochlorothiazide Allergy Shortness Verified 03/09/20 09:20 of Breath Penicillins Allergy Rash Verified 03/09/20 09:20 varenicline [From Chantix] Allergy Rash Verified 03/09/20 09:20 Home Meds: Home Meds Nicotine Polacrilex [Nicorette] 1 piece gum CHEW Q1H PRN 05/28/17 [History] Cholecalciferol (Vitamin D3) [Vitamin D3] 2,000 units PO DAILY 07/17/18 [History] Rosuvastatin Calcium [Crestor] 40 mg PO DAILY 30 Days #30 tablet 11/15/18 [Rx] Aspirin 81 mg CHEW DAILY 09/26/19 [History] Losartan Potassium 50 mg PO DAILY 09/26/19 [History] Zinc Gluconate [Zinc] 50 mg PO DAILY 09/26/19 [History] Past Medical History - Past Health History Medical/Surgical History: Denies Medical/Surgical History HEENT History: Reports: Allergic Rhinitis Cardiovascular History: Reports: High Cholesterol, Hypertension, Other (See Below) Respiratory History: Reports: None Gastrointestinal History: Reports: Colon Polyp, Diverticulosis, Hiatal Hernia Genitourinary History: Reports: None [employer] History: Reports: Musculoskeletal History: Reports: None Neurological History: Reports: TIA Other Neuro History: 10/2018 TIA, left side numbness 1/2 to 1 hour due to very high blood pressure. BP under control since Psychiatric History: Reports: None Endocrine/Metabolic History: Reports: Obesity/BMI 30+ Hematologic History: Reports: None Immunologic History: Reports: None Oncologic (Cancer) History: Reports: None Dermatologic History: Reports: None - Infectious Disease History Infectious Disease History: Reports: Chicken Pox, Novel Coronavirus, Shingles - Past Surgical History Head Surgeries/Procedures: Reports: None HEENT Surgical History: Reports: None, Naso-Sinus Surgery Cardiovascular Surgical History: Reports: None Respiratory Surgical History: Reports: None GI Surgical History: Reports: Colonoscopy Female Surgical History: Reports: Section Endocrine Surgical History: Reports: Thyroidectomy Other Endocrine Surgeries/Procedures: subtotal thyroidectomy Neurological Surgical History: Reports: None Musculoskeletal Surgical History: Reports: None Oncologic Surgical History: Reports: None Dermatological Surgical History: Reports: None Social & Family History - Family History Family Medical History: No Pertinent Family History Cardiac: Reports: [place] - Tobacco Use Tobacco Use Status *Q: Never Tobacco User - Caffeine Use Caffeine Use: Reports: Coffee - Recreational Drug Use Recreational Drug Use: No ED ROS GENERAL - Review of Systems Review Of Systems: See Below (see dictation) ED EXAM, GENERAL - Physical Exam Exam: See Below (see dictation) Course - Vital Signs Last Recorded V/S: Last Vital Signs Temp 97.2 F 03/09/20 11:49 Pulse 78 03/09/20 11:49 Resp 18 03/09/20 11:49 BP 132/82 03/09/20 11:49 Pulse Ox 97 03/09/20 11:49 - Orders/Labs/Meds Orders: Active Orders 24 hr Category Date Time Status Cardiac Monitoring [RC] . DIRECTED Care 03/09/20 09:28 Active EKG Documentation Completion [RC] STAT Care 03/09/20 09:29 Active Pulse Oximetry [RC] ASDIRECTED Care 03/09/20 09:28 Active Sodium Chloride 0.9% [Saline Flush] Med 03/09/20 09:28 Active 10 ml FLUSH ASDIRECTED PRN Sodium Chloride 0.9% [Saline Flush] Med 03/09/20 09:28 Active 2.5 ml FLUSH ASDIRECTED PRN Saline Lock Insert [OM.PC] Stat Oth 03/09/20 09:28 Ordered Medication Orders Sodium Chloride (Saline Flush) 10 ml FLUSH ASDIRECTED PRN PRN Reason: Keep Vein Open Last Admin: 03/09/20 13:47 Dose: 10 ml Documented by: TAMIKO Sodium Chloride (Saline Flush) 2.5 ml FLUSH ASDIRECTED PRN PRN Reason: Keep Vein Open Last Admin: 03/09/20 13:48 Dose: 2.5 ml Documented by: TAMIKO Labs: Laboratory Tests 03/09/20 03/09/20 03/09/20 Range/Units 09:35 09:35 09:35 WBC 6.30 (4.0-11.0) K/uL RBC 4.99 (4.30-5.90) M/uL Hgb 14.5 (12.0-16.0) g/dL Hct 45.1 (36.0-46.0) % MCV 90.4 (80.0-98.0) fL MCH 29.1 (27.0-32.0) pg MCHC 32.2 (31.0-37.0) g/dL RDW Std Deviation 46.6 (28.0-62.0) fl RDW Coeff of Oscar 14 (11.0-15.0) % Plt Count 264 (150-400) K/uL MPV 10.00 (7.40-12.00) fL Neut % (Auto) 64.8 (48.0-80.0) % Lymph % (Auto) 25.4 (16.0-40.0) % [place] % (Auto) 7.1 (0.0-15.0) % Eos % (Auto) 2.4 (0.0-7.0) % Baso % (Auto) 0.3 (0.0-1.5) % Neut # (Auto) 4.1 (1.4-5.7) K/uL Lymph # (Auto) 1.6 (0.6-2.4) K/uL [place] # (Auto) 0.5 (0.0-0.8) K/uL Eos # (Auto) 0.2 (0.0-0.7) K/uL Baso # (Auto) 0.0 (0.0-0.1) K/uL Nucleated RBC % 0.0 /100WBC Nucleated RBCs # 0 K/uL INR 1.03 APTT 25.5 (18.6-31.3) SEC Sodium 140 (136-145) mmol/L Potassium 4.4 (3.5-5.1) mmol/L Chloride 105 (98-107) mmol/L Carbon Dioxide 23.7 (21.0-32.0) mmol/L BUN 10 (7.0-18.0) mg/dL Creatinine 0.9 (0.6-1.0) mg/dL Est Cr Clr Drug Dosing 54.99 mL/min Estimated GFR (MDRD) > 60.0 ml/min Glucose 143 H (74-106) mg/dL Calcium 9.3 (8.5-10.1) mg/dL Magnesium 2.2 (1.8-2.4) mg/dL Total Bilirubin 0.4 (0.2-1.0) mg/dL AST 20 (15-37) IU/L ALT 41 (14-63) IU/L Alkaline Phosphatase 119 H (46-116) U/L Troponin I < 0.050 (0.000-0.056) ng/mL Total Protein 7.3 (6.4-8.2) g/dL Albumin 4.1 (3.4-5.0) g/dL Globulin 3.2 (2.6-4.0) g/dL Albumin/Globulin Ratio 1.3 (0.9-1.6) Free T4 0.79 (0.76-1.46) ng/dL TSH 3rd Generation 1.93 (0.36-3.74) uIU/mL 03/09/20 Range/Units 13:01 WBC (4.0-11.0) K/uL RBC (4.30-5.90) M/uL Hgb (12.0-16.0) g/dL Hct (36.0-46.0) % MCV (80.0-98.0) fL MCH (27.0-32.0) pg MCHC (31.0-37.0) g/dL RDW Std Deviation (28.0-62.0) fl RDW Coeff of Oscar (11.0-15.0) % Plt Count (150-400) K/uL MPV (7.40-12.00) fL Neut % (Auto) (48.0-80.0) % Lymph % (Auto) (16.0-40.0) % [place] % (Auto) (0.0-15.0) % Eos % (Auto) (0.0-7.0) % Baso % (Auto) (0.0-1.5) % Neut # (Auto) (1.4-5.7) K/uL Lymph # (Auto) (0.6-2.4) K/uL [place] # (Auto) (0.0-0.8) K/uL Eos # (Auto) (0.0-0.7) K/uL Baso # (Auto) (0.0-0.1) K/uL Nucleated RBC % /100WBC Nucleated RBCs # K/uL INR APTT (18.6-31.3) SEC Sodium (136-145) mmol/L Potassium (3.5-5.1) mmol/L Chloride (98-107) mmol/L Carbon Dioxide (21.0-32.0) mmol/L BUN (7.0-18.0) mg/dL Creatinine (0.6-1.0) mg/dL Est Cr Clr Drug Dosing mL/min Estimated GFR (MDRD) ml/min Glucose (74-106) mg/dL Calcium (8.5-10.1) mg/dL Magnesium (1.8-2.4) mg/dL Total Bilirubin (0.2-1.0) mg/dL AST (15-37) IU/L ALT (14-63) IU/L Alkaline Phosphatase (46-116) U/L Troponin I < 0.050 (0.000-0.056) ng/mL Total Protein (6.4-8.2) g/dL Albumin (3.4-5.0) g/dL Globulin (2.6-4.0) g/dL Albumin/Globulin Ratio (0.9-1.6) Free T4 (0.76-1.46) ng/dL TSH 3rd Generation (0.36-3.74) uIU/mL Meds: Medications Generic Name Dose Route Start Last Admin Trade Name Freq PRN Reason Stop Dose Admin Sodium Chloride 10 ml 03/09/20 09:28 03/09/20 13:47 Saline Flush FLUSH 10 ml ASDIRECTED PRN Administration Keep Vein Open Sodium Chloride 2.5 ml 03/09/20 09:28 03/09/20 13:48 Saline Flush FLUSH 2.5 ml ASDIRECTED PRN Administration Keep Vein Open Discontinued Medications Generic Name Dose Route Start Last Admin Trade Name Freq PRN Reason Stop Dose Admin Al Hydroxide/Mg Hydroxide 15 0 ml 03/09/20 12:57 03/09/20 13:43 ml/ Lidocaine HCl 5 ml PO 03/09/20 12:58 1 each ONETIME ONE Administration Pantoprazole Sodium 40 mg/ 20 mls @ 420 mls/hr 03/09/20 12:58 03/09/20 13:44 Sodium Chloride IVPUSH 03/09/20 13:00 420 mls/hr ONETIME ONE Administration Iopamidol 100 ml 03/09/20 12:19 03/09/20 12:19 Isovue Multipack-370 (76%) IVPUSH 03/09/20 12:20 100 ml ONETIME STA Administration - Re-Assessments/Exams Free Text/Narrative Re-Assessment/Exam: 03/09/20 13:36 Her heartburn sensation has resolved. 03/09/20 14:08 I performed a repeat exam and did not appreciate new abnormal findings. Patient exhibits normal vital signs and has a normal gait on road test. I advised the patient to return to the ER for reevaluation if symptoms worsened, including fever, worsening pain, or any other worrisome symptoms. I instructed the patient to follow up with neurology clinic within 2-3 days for further workup of her TIA symptoms today. She has no residual functional deficit at this point. Her NIH stroke scale upon discharge is 0. No chest pain upon discharge. MEDICAL DECISION MAKING: I reviewed the patients past medical records, lab and radiographic findings. I discussed the case with the patient. My differential diagnosis included: TIA, GERD, ACS, pneumonia, pneumothorax, chest wall pain, pulmonary edema/CHF, aortic dissection, pericarditis. Her NIH stroke scale = 0, she has no hypoesthesia or paresthesia to bilateral upper extremities despite her complaints of numbness. CT head and CT angio head and neck did not reveal any acute stroke. Her ABCD 2 score for TIA is of low risk. I believe she is stable for outpatient follow-up with neurology clinic. Given the EKG and clinical history, I do not suspect pericarditis. There is no evidence of pneumothorax or infiltrate on CXR. Aortic dissection was considered, however the presenting symptoms were uncharacteristic of aortic dissection. Chest X-ray shows no evidence of mediastinal widening and there are strong, equal and symmetric pulses. Given the current presentation, I do not suspect aortic dissection. The patients history, chest X-ray, and exam do not suggest pulmonary edema/congestive heart failure. Acute coronary syndrome was c onsidered but there are negative serial biomarkers, no acute ischemic EKG changes, and the patient has a low HEART score. Based on this, I feel that there is low risk for short-term major adverse cardiac event. I have discussed this with the patient and reviewed options for inpatient and outpatient management. The patient verbalizes an excellent understanding of the above including presence of small risk of short-term major adverse cardiac event even in the setting of low HEART score, negative cardiac biomarker, and compendium of elements of this presentation. The patient wishes to pursue further workup on as an outpatient. Departure - Departure Time of Disposition: 14:11 Disposition: Home, Self-Care 01 Condition: Good Clinical Impression: Paresthesia Chest pain Qualifiers: Chest pain type: unspecified Qualified Code(s): R07.9 - Chest pain, unspecified - Discharge Information *PRESCRIPTION DRUG MONITORING PROGRAM REVIEWED*: Not Applicable *COPY OF PRESCRIPTION DRUG MONITORING REPORT IN PATIENT SHI: Not Applicable Instructions: Paresthesia, Nonspecific Chest Pain, Adult Referrals: Shannen Crowley MD [Primary Care Provider] - 3 Days Kathy Zepeda MD [Physician] - 3 Days Forms: ED Department Discharge Additional Instructions: The need for follow-up, as well as the timing and circumstances, are variable depending upon the specifics of your emergency department visit. If you don't have a primary care physician on staff, we will provide you with a referral. We always advise you to contact your personal physician following an emergency department visit to inform them of the circumstance of the visit and for follow-up with them and/or the need for any referrals to a consulting specialist. The emergency department will also refer you to a specialist when appropriate. This referral assures that you have the opportunity for follow-up care with a specialist. All of these measure are taken in an effort to provide you with optimal care, which includes your follow-up. Under all circumstances we always encourage you to contact your private physician who remains a resource for coordinating your care. When calling for follow-up care, please make the office aware that this follow-up is from your recent emergency room visit. If for any reason you are refused follow-up, please contact the [facility] Emergency Department at and asked to speak to the emergency department charge nurse. Neurology [facility] - Neurology Professional Building [address] [place] [address], [address] [place] [address] Sepsis Event Note (ED) - Evaluation Sepsis Screening Result: No Definite Risk - Focused Exam Vital Signs: Vital Signs Temp Pulse Resp BP Pulse Ox 03/09/20 11:49 97.2 F 78 18 132/82 97 03/09/20 10:12 145/95 H 03/09/20 09:16 97.6 F 95 16 153/73 H 97 - My Orders Last 24 Hours: My Active Orders 03/09/20 09:28 Cardiac Monitoring [RC] . DIRECTED Pulse Oximetry [RC] ASDIRECTED Sodium Chloride 0.9% [Saline Flush] 10 ml FLUSH ASDIRECTED PRN Sodium Chloride 0.9% [Saline Flush] 2.5 ml FLUSH ASDIRECTED PRN Saline Lock Insert [OM.PC] Stat 03/09/20 09:29 EKG Documentation Completion [RC] STAT - Assessment/Plan Last 24 Hours: My Active Orders 03/09/20 09:28 Cardiac Monitoring [RC] . DIRECTED Pulse Oximetry [RC] ASDIRECTED Sodium Chloride 0.9% [Saline Flush] 10 ml FLUSH ASDIRECTED PRN Sodium Chloride 0.9% [Saline Flush] 2.5 ml FLUSH ASDIRECTED PRN Saline Lock Insert [OM.PC] Stat 03/09/20 09:29 EKG Documentation Completion [RC] STAT
--- NOTE | 2020-03-09 09:59 | CR ---
INDICATION: Numbness COMPARISON: 12/27/2015 TECHNIQUE: Single-view portable chest radiograph FINDINGS: TUBES AND LINES: None. HEART AND MEDIASTINUM: The heart size is normal. The mediastinal contour appears normal for patient age. LUNGS AND PLEURAL SPACES: The lungs appear normal.The pleural spaces are unremarkable. OSSEOUS STRUCTURES: Age-appropriate appearance. No acute focal finding. IMPRESSION: No evidence of active pulmonary disease. Dictated by Duong Dan MD @ Mar 09 2020 9:57AM Signed by Dr. Duong Dan @ Mar 09 2020 9:58AM
[2020-03-09 10:19] LABS: BLOOD UREA NITROGEN,BUN 10 mg/dL (7.0-18.0); CARBON DIOXIDE,CO2 23.7 mmol/L (21.0-32.0); CHLORIDE,CL 105 mmol/L (98-107); GLUCOSE RANDOM 143 mg/dL (74-106); POTASSIUM,K 4.4 mmol/L (3.5-5.1); SODIUM,NA 140 mmol/L (136-145)
--- NOTE | 2020-03-09 12:18 | CT ---
INDICATION: Acute stroke, right upper extremity weakness. TECHNIQUE: After standard noncontrast head CT, high resolution axial CT images acquired through the head and neck following rapid intravenous administration of iodinated contrast. Multiplanar MIPS of cranial and cervical vasculature performed. FINDINGS: Noncontrast head CT: There is no intracranial hemorrhage or fluid collection. The fine-white matter differentiation is maintained. Brain parenchymal volume loss is noted. There are nonspecific white matter hypodensities commonly seen with cerebral small vessel disease. The ventricles are of normal morphology. The basal cisterns are clear. CTA head: There is normal filling of the intracranial vasculature; i.e. there is no large vessel occlusion or significant intracranial stenosis. There is no cerebral aneurysm or evidence for vascular malformation. CTA neck: There is no carotid or vertebral artery stenosis or dissection. IMPRESSION: No large vessel occlusion. No carotid or vertebral artery stenosis or dissection. Won Mcfadden MD Neurointerventional [employer] [facility] Please note that all CT scans at this facility use dose modulation, iterative reconstruction, and/or weight-based dosing when appropriate to reduce radiation dose to as low as reasonably achievable. Dictated by Won Mcfadden MD @ Mar 09 2020 12:12PM Signed by Dr. Won Mcfadden @ Mar 09 2020 12:17PM
[2020-03-09] MEDS ORDERED: Iopamidol 755 MG/ML 500 ML Multipack Bottle IVPUSH STA (12:19)
[2020-03-09] MEDS ORDERED: Alum Hydrox/Mag Hydrox/Simeth 15 ML, Lidocaine 2% 5 ML PO ONE ×2 (12:57)
[2020-03-09] MEDS ORDERED: Pantoprazole 40 MG in Sodium Chloride 0.9% 20 ML IVPUSH ONE (12:58)
[2020-03-09 14:40] VITALS: BP 137/90; PULSE 81
== END 2020-03-09 14:37 | disposition home or self-care (01) ==
LOC: MW.ED 09:07
DX: R07.9 Chest pain, unspecified (principal); R20.2 Paresthesia of skin; E78.00 Pure hypercholesterolemia, unspecified; I10 Essential (primary) hypertension; E66.9 Obesity, unspecified; Z68.32 Body mass index [BMI] 32.0-32.9, adult; Z86.73 Personal history of transient ischemic attack (TIA), and cerebral infarction without residual deficits; Z88.1 Allergy status to other antibiotic agents; Z88.8 Allergy status to other drugs, medicaments and biological substances; Z88.0 Allergy status to penicillin; Z79.82 Long term (current) use of aspirin; Z79.899 Other long term (current) drug therapy
CPT/HCPCS: 36415; 70450; 70496; 70498; 71045; 80053; 83735; 84439; 84443; 84484; 85025; 85610; 85730; 93005; 96374; 99285; A9270; C9113; Q9967; 93010; 99284

== ENCOUNTER 2021-06-07 18:28 | Emergency (ER) | payer BC ==
[2021-06-07] MEDS ORDERED: Sodium Chloride 0.9% 2.5 ML Syringe FLUSH PRN (18:33)
[2021-06-07] MEDS ORDERED: Sodium Chloride 0.9% 10 ML Syringe FLUSH PRN (18:33)
[2021-06-07] MEDS ORDERED: Sodium Chloride 0.9% 1,000 ML IV ONE (18:35)
[2021-06-07 20:10] LABS: CORONAVIRUS COVID-19 NAA NEGATIVE (NEGATIVE); INFLUENZA A NAA NEGATIVE (NEGATIVE); INFLUENZA B NAA NEGATIVE (NEGATIVE)
[2021-06-07 20:28] LABS: BLOOD UREA NITROGEN,BUN 15 mg/dL (7.0-18.0); CARBON DIOXIDE,CO2 24.5 mmol/L (21.0-32.0); CHLORIDE,CL 105 mmol/L (98-107); GLUCOSE RANDOM 97 mg/dL (74-106); POTASSIUM,K 3.9 mmol/L (3.5-5.1); SODIUM,NA 143 mmol/L (136-145)
[2021-06-07 20:55] VITALS: BP 142/87; PULSE 86
== END 2021-06-07 20:56 | disposition home or self-care (01) ==
LOC: MW.ED 18:28
DX: J01.00 Acute maxillary sinusitis, unspecified (principal); I10 Essential (primary) hypertension; E78.00 Pure hypercholesterolemia, unspecified; E66.9 Obesity, unspecified; Z88.0 Allergy status to penicillin; Z88.1 Allergy status to other antibiotic agents; Z88.8 Allergy status to other drugs, medicaments and biological substances; Z79.82 Long term (current) use of aspirin; Z79.899 Other long term (current) drug therapy; Z68.33 Body mass index [BMI] 33.0-33.9, adult; Z86.73 Personal history of transient ischemic attack (TIA), and cerebral infarction without residual deficits; Z20.822 Contact with and (suspected) exposure to COVID-19
CPT/HCPCS: 0240U; 36415; 70450; 71045; 80053; 81001; 83735; 84484; 85025; 87086; 93005; 99284; J7030; 93010

== ENCOUNTER 2023-02-06 06:29 | Day surgery (SDC) | payer BC ==
[~2023-02-06 06:29] MED LIST changes: -Lidocaine 2% 5 ML SDV ONE; -Propofol 200 MG/20 ML SDV ONE; -Sodium Chloride 0.9% 10 ML SDV IV PRN; +Sodium Chloride 0.9% 20 ML SDV IV PRN; -fentaNYL 100 MCG/2 ML SDV ONE
[2023-02-06] MEDS ORDERED: propofoL 50 ML ONE (07:32)
[2023-02-06 08:44] VITALS: BP 94/52; PULSE 57
== END 2023-02-06 09:05 | disposition home or self-care (01) ==
LOC: MW.SDS 06:29
PROVIDERS: ATTEND Surgery
DX: Z12.11 Encounter for screening for malignant neoplasm of colon (principal); D12.3 Benign neoplasm of transverse colon; D12.4 Benign neoplasm of descending colon; K57.30 Diverticulosis of large intestine without perforation or abscess without bleeding; K64.8 Other hemorrhoids
CPT/HCPCS: 00811; J2704; J7120

== ENCOUNTER 2023-04-06 05:55 | Observation (INO) | payer BC ==
[2023-04-06] MEDS ORDERED: Sodium Chloride 0.9% 10 ML Syringe FLUSH PRN (06:12)
[2023-04-06] MEDS ORDERED: Sodium Chloride 0.9% 20 ML SDV IV PRN (06:12)
[2023-04-06] MEDS ORDERED: Sodium Chloride 0.9% 2.5 ML Syringe FLUSH PRN (06:12)
[2023-04-06 06:20] LABS: BASOPHILS ABSOLUTE AUTO 0.05 K/uL (0.00-0.20); BASOPHILS PERCENT AUTO 0.7 % (0.0-1.0); HEMATOCRIT 44.6 % (37.0-47.0); HEMOGLOBIN 15.2 g/dL (12.0-16.0); IMMATURE GRAN ABSOLUTE AUTO 0.02 K/uL (0.00-0.05); IMMATURE GRAN PERCENT AUTO 0.3 % (0.0-0.4); LYMPHOCYTES PERCENT AUTO 40.8 % (24.0-44.0); MEAN CORPUSCULAR HEMOGLOBIN 30.1 pg (28.0-32.0); MEAN CORPUSCULAR HGB CONC 34.1 g/dL (32.0-36.0); MEAN CORPUSCULAR VOLUME 88.3 fL (83.0-99.0); MEAN PLATELET VOLUME 8.9 fL (9.4-12.3); MONOCYTES ABSOLUTE AUTO 0.72 K/uL (0.00-0.80); MONOCYTES PERCENT AUTO 9.5 % (0.0-8.0); NEUTROPHILS PERCENT AUTO 44.7 % (41.0-71.0); PLATELET COUNT,PLT 261 K/uL (150-400); RED BLOOD CELL COUNT 5.05 M/uL (4.10-5.30); WHITE BLOOD CELL COUNT,WBC 7.59 K/uL (3.9-11.3)
[2023-04-06 06:30] LABS: INR 0.97 (0.86-1.11); PTT,PARTIAL THROMBOPLSTIN TIME 26.9 SEC (23.9-30.7)
[2023-04-06] MEDS ORDERED: Iopamidol 755 MG/ML 500 ML Multipack Bottle IVPUSH ONE (06:40)
[2023-04-06 06:41] LABS: A/G RATIO 1.3 (0.9-1.6); ALANINE AMINOTRANSFERASE,ALT 38 IU/L (14-63); ALBUMIN 3.9 g/dL (3.4-5.0); ALKALINE PHOSPHATASE 107 U/L (46-116); ASPARTATE AMNIOTRANSFERASE,AST 22 IU/L (15-37); BILIRUBIN TOTAL 0.5 mg/dL (0.2-1.0); BLOOD UREA NITROGEN,BUN 15 mg/dL (7.0-18.0); CALCIUM 8.7 mg/dL (8.5-10.1); CARBON DIOXIDE,CO2 25.3 mmol/L (21.0-32.0); CHLORIDE,CL 105 mmol/L (98-107); CREATININE 0.9 mg/dL (0.6-1.0); EST CRCL DRUG DOSING (CG) 52.93 mL/min; ESTIMATED GFR 72 mL/min (>60); ETHANOL BLOOD MEDICAL < 3.0 mg/dL; GLUCOSE RANDOM 125 mg/dL (74-106); POTASSIUM,K 3.8 mmol/L (3.5-5.1); PROTEIN TOTAL,TP 6.8 g/dL (6.4-8.2); SODIUM,NA 143 mmol/L (136-145)
[2023-04-06] MEDS ORDERED: Sodium Chloride 0.9% 1,000 ML IV ONE (06:49)
[2023-04-06 08:46] LABS: HEMOGLOBIN A1C 5.5 %
[2023-04-06 08:55] LABS: TSH ULTRASENSITIVE 2.08 uIU/mL (0.36-3.74)
[2023-04-06 09:02] LABS: APPEARANCE,URINE CLEAR; BILIRUBIN,URINE NEGATIVE (NEGATIVE); COLOR,URINE YELLOW; GLUCOSE,URINE NEGATIVE (NEGATIVE); KETONES,URINE NEGATIVE (NEGATIVE); LEUKOCYTE ESTERASE,URINE NEGATIVE (NEGATIVE); NITRITE,URINE NEGATIVE (NEGATIVE); OCCULT BLOOD,URINE NEGATIVE (NEGATIVE); PROTEIN,URINE NEGATIVE (NEGATIVE); UROBILINOGEN,URINE 0.2 EU/dL (<2.0)
[2023-04-06] MEDS ORDERED: LORazepam 1 MG Tab PO PRN (10:07)
[2023-04-06] MEDS ORDERED: LORazepam 2 MG/ML SDV IVPUSH PRN (10:38)
[2023-04-06] MEDS ORDERED: Gadobenate Dimeglumine 529 MG/ML 20 ML SDV IVPUSH STA (13:04)
[2023-04-06] MEDS ORDERED: Clopidogrel 75 MG Tab PO SCH (16:30)
[2023-04-06 18:02] VITALS: BP 178/93; PULSE 78
[2023-04-06] MEDS ORDERED: Rosuvastatin 10 MG Tab PO SCH (21:00)
[2023-04-07] MEDS ORDERED: Aspirin 81 MG Tab.Chew PO SCH (09:00)
== END 2023-04-06 18:00 | disposition home or self-care (01) ==
LOC: MW.ED 05:55 → MW.MS 06:55
PROVIDERS: ADMIT Family Medicine; ATTEND Family Medicine
DX: R29.818 Other symptoms and signs involving the nervous system (principal); I10 Essential (primary) hypertension; E78.00 Pure hypercholesterolemia, unspecified; Z86.73 Personal history of transient ischemic attack (TIA), and cerebral infarction without residual deficits; Z79.82 Long term (current) use of aspirin; Z79.02 Long term (current) use of antithrombotics/antiplatelets; Z79.899 Other long term (current) drug therapy; Z88.0 Allergy status to penicillin; Z88.8 Allergy status to other drugs, medicaments and biological substances
CPT/HCPCS: 36415; 70450; 70496; 70498; 70544; 70549; 70553; 71045; 80053; 80061; 80307; 81003; 83036; 84443; 84484; 85025; 85610; 85730; 93005; 93306; 99285; A9270; A9577; J2060; J3490; J7030; Q9967; G0378

== ENCOUNTER 2023-12-20 11:34 | Emergency (ER) | payer BC ==
[2023-12-20 11:44] VITALS: BP 162/84; PULSE 94
[2023-12-20] MEDS ORDERED: Sodium Chloride 0.9% 2.5 ML Syringe FLUSH PRN (11:56)
[2023-12-20] MEDS ORDERED: Sodium Chloride 0.9% 10 ML Syringe FLUSH PRN (11:56)
[2023-12-20 12:45] LABS: BASOPHILS ABSOLUTE AUTO 0.05 K/uL (0.00-0.20); BASOPHILS PERCENT AUTO 0.7 % (0.0-1.0); EOSINOPHILS ABSOLUTE AUTO 0.08 K/uL (0.00-0.45); EOSINOPHILS PERCENT AUTO 1.1 % (0.0-6.0); HEMATOCRIT 42.3 % (37.0-47.0); HEMOGLOBIN 14.3 g/dL (12.0-16.0); IMMATURE GRAN ABSOLUTE AUTO 0.02 K/uL (0.00-0.05); IMMATURE GRAN PERCENT AUTO 0.3 % (0.0-0.4); LYMPHOCYTES ABSOLUTE AUTO 0.98 K/uL (1.00-4.80); LYMPHOCYTES PERCENT AUTO 13.2 % (24.0-44.0); MEAN CORPUSCULAR HEMOGLOBIN 30.2 pg (28.0-32.0); MEAN CORPUSCULAR HGB CONC 33.8 g/dL (32.0-36.0); MEAN CORPUSCULAR VOLUME 89.2 fL (83.0-99.0); MEAN PLATELET VOLUME 9.1 fL (9.4-12.3); MONOCYTES ABSOLUTE AUTO 0.35 K/uL (0.00-0.80); MONOCYTES PERCENT AUTO 4.7 % (0.0-8.0); NEUTROPHILS ABSOLUTE AUTO 5.97 K/uL (1.80-7.70); PLATELET COUNT,PLT 259 K/uL (150-400); RED BLOOD CELL COUNT 4.74 M/uL (4.10-5.30); WHITE BLOOD CELL COUNT,WBC 7.45 K/uL (3.9-11.3)
[2023-12-20 13:32] LABS: A/G RATIO 1.4 (0.9-1.6); ALANINE AMINOTRANSFERASE,ALT 37 IU/L (14-63); ALBUMIN 3.9 g/dL (3.4-5.0); ALKALINE PHOSPHATASE 109 U/L (46-116); ASPARTATE AMNIOTRANSFERASE,AST 22 IU/L (15-37); BILIRUBIN TOTAL 0.4 mg/dL (0.2-1.0); BLOOD UREA NITROGEN,BUN 11 mg/dL (7.0-18.0); CARBON DIOXIDE,CO2 27.3 mmol/L (21.0-32.0); CHLORIDE,CL 107 mmol/L (98-107); EST CRCL DRUG DOSING (CG) 47.01 mL/min; GLUCOSE RANDOM 179 mg/dL (74-106); POTASSIUM,K 3.7 mmol/L (3.5-5.1); PRO B-TYPE NATRIUR PEPT,BNPPRO 32 pg/mL (0-125); PROTEIN TOTAL,TP 6.7 g/dL (6.4-8.2); SODIUM,NA 142 mmol/L (136-145); TSH ULTRASENSITIVE 0.86 uIU/mL (0.36-3.74)
[2023-12-20 13:34] LABS: ESTIMATED GFR 63 mL/min (>60)
== END 2023-12-20 14:11 | disposition home or self-care (01) ==
LOC: MW.ED 11:34
DX: R00.2 Palpitations (principal); R42 Dizziness and giddiness; I10 Essential (primary) hypertension; E78.00 Pure hypercholesterolemia, unspecified; E66.9 Obesity, unspecified; Z88.0 Allergy status to penicillin; Z88.8 Allergy status to other drugs, medicaments and biological substances; Z79.82 Long term (current) use of aspirin; Z79.899 Other long term (current) drug therapy; Z87.891 Personal history of nicotine dependence; Z75.8 Other problems related to medical facilities and other health care; Z68.34 Body mass index [BMI] 34.0-34.9, adult
CPT/HCPCS: 36415; 71045; 71045-26; 80053; 83880; 84443; 84484; 85025; 93005; 93010; 99282; 99285